=== PATIENT | female | born 1945 | race Caucasian/White ===

== ENCOUNTER → 2019-09-28 09:06 | Day surgery (SDC) | payer MEDICARE, OTHER, SELFPAY ==
[2019-09-28] VITALS (15 sets, daily range): BP systolic 150–176; BP diastolic 60–99; PULSE 57–95; RESP 13–65; TEMP 37.1; O2SAT 94–98; BMI 29.0
--- NOTE | 2019-09-28 08:30 | XACV_ITS ---
Ht: 160 cm Wt: 74 kg BSA: 1.84 m2 Gender: Female : 1945 Any Known Allergies: Other Exam Priority: Routine Procedure(s): Procedure Description: Diagnostic procedure Diagnostic Findings No significant disease noted in the Left Main, LAD, Circumflex, or RCA coronary arteries. Coronary angiography shows right dominance. Conclusions No significant disease noted in the Left Main, LAD, Circumflex, or RCA coronary arteries. Hyperdynamic left ventricular systolic function. Ejection fraction of 75%. Indication for left heart catheterization: Unexplained shortness of breath chest pain despite of maximal medical management, elevated TID on stress test. Recommendations Continue current medical management and risk factor modification. Diagnostic RX Recommendation: medical therapy and/or counseling LV EDP: 12 mmHg Ventriculography Ejection Fraction: 75.0 % Left Ventriculography Findings: Hyperkinetic left ventricular systolic function. Clinical Evaluation EBL: 5mL-10mL Procedural Details Procedure Consent Obtained. Pre-Procedure Time Out. Identified patient by full name and date of as verbalized by the patient/guarantor. Does the consent match the physician's order: Yes. Accurate & Complete Informed Consent: Yes. Inpatient/Outpatient History & Physical on Chart: Yes. If H&P is completed, is and addenduem needed: N/A; If yes, is the addendum complete: N/A. Visualize and Verify Site with Patient/Guarantor: N/A. Relevant Radiology Images available: Yes. Pre-op teaching completed and patient verbalized understanding. The risks, benefits, and alternatives of sedation and/or procedure were discussed by physician. The patient agrees to continue. Procedure started. Correct patient, site and procedure confirmed by cath team. PERRLA. Strong, equal hand farm demonstrator bilaterally. Lungs clear x 5 lobes. IV Site on Arrival: 20 gauge in the left anticubital. IV Fluids: 0.9% NaCl at KVO. 0 mL infused prior to packing house laborer. Pre Procedural Pulses: bilateral dorsalis pedis was 3+. Pre Procedural Pulses: bilateral posterior tibial was 3+. Pre Procedural Pulses: bilateral radial was 3+. Oxygen started at 2liters/min via nasal canula. right groin was prepped with chloroprep then draped in the usual sterile fashion. right radial was prepped with chloroprep then draped in the usual sterile fashion. Physician notified. Baseline sample Acquired. HR: 0 BPM. Equipment: 6F - Radial. Cardiac Cath Pack. ACIST Manifold Kit Model BT 2000. Heparinized Saline (2 units/mL), 1000 mL bag. Physician arrived. Physician scrubbed in. Immediate Pre-Procedure Time Out. Correct Patient: Yes; Correct Procedure: Yes; Correct Site: Yes; Correct Patient Position: Yes; Correct Supplies: Yes; Dried Flammable Prep: Yes; Blood Products Available: No;. Lidocaine 1% infiltrated to the right radial. Arterial access obtained. A 5 saudi [place]abian TIG catheter in over wire. Side port of sheath attached to Normal Saline flush at KVO to maintain patency. I.V. not flushing. A 20 gauge IV was started in the left forearm using aseptic technique. Baseline sample Acquired. HR: 75 BPM. Baseline sample Acquired. HR: 73 BPM. AO pressure: 192/80. Multiple views taken of left coronary artery. Catheter redirected to the RCA. Catheter removed over the exchange wire. A 5 sa[place] arabian JR4 catheter in over wire. Multiple views taken of right coronary artery. A 5 [place]abian Angled Pig catheter in over wire. EDP Sample taken: LV 8; HR: 89 BPM; SpO2: 96%. EDP Sample taken: LV 12; HR: 89 BPM; SpO2: 96%. LV gram performed in VIDES @ 10 mL/second for a total of 30 mL. EDP Sample taken: LV Off; HR: 0 BPM; SpO2: 95%. Pullback taken: LV Off; AO Off; Mean: , Peak to Peak: , SEP: ; HR: 0 BPM; SpO2: 95%. LV EDP: 12. TR band placed. Hemostasis obtained. Post Procedure: Pulses reassessed and unchanged. PERRLA. Strong, equal hand farm demonstrator bilaterally. No VTE prophylaxis required. Medication's Wasted: Lidocaine 1% = 18 mL. Medication's Wasted: Heparin = 10 mg. Medication's Wasted: Nitro = 49.8 mg. Medication's Wasted: Hydralazine = 10 mg. Medication's Wasted: Fentanyl = 50 mcg. Total IV fluids: 50 mL. A TR Band was successful obtaining hemostatsis at the Right Radial artery insertion site. Contrast type used: Visipaque 320 mgI/mL, 500 mL bottle. Post-op diagnosis: Chest Pain. Complications: N/A. Estimated blood loss: 5mL-10mL. Procedure completed. Patient transferred by wheelchair to CPRU. [facility] Clinical Fraility Score: 3: Managing Well. Service Line Layer Indications: New Onset Angina. Chest Pain Symptom Assessment: Atypical Angina. Cardiovascular Instability: No. Site: Right Radial artery Sheath Size: 6 Fr Hemostasis Method: TR Band Hemostasis Success: Successful Procedure Medications Start: 12:19 PM Stop: 12:19 PM Medication: Versed Amount: 1 mg Route: I.V. Start: 12:25 PM Stop: 12:25 PM Medication: Versed Amount: 1 mg Route: I.V. Start: 12:25 PM Stop: 12:25 PM Medication: Fentanyl Amount: 50 mcg Route: I.V. Start: 12:28 PM Stop: 12:28 PM Medication: Fentanyl Amount: 50 mcg Route: I.V. Start: 12:38 PM Stop: 12:38 PM Medication: Heparin Amount: 5000 units Route: I.V. Start: 12:38 PM Stop: 12:38 PM Medication: Versed Amount: 1 mg Route: I.V. Start: 12:38 PM Stop: 12:38 PM Medication: Fentanyl Amount: 50 mcg Route: I.V. Start: 12:40 PM Stop: 12:40 PM Medication: Hydralazine Amount: 10 mg Route: I.V. Start: 12:40 PM Stop: 12:40 PM Medication: Versed Amount: 1 mg Route: I.V. I, the attending physician, have reviewed and verified all procedure medications. Yes, all medications given per verbal order History/Risk Factors Hypertension: Yes Dyslipidemia: Yes Peripheral Arterial Disease (PAD): No Myocardial Infarction (IN): No Obesity: Yes Renal Disease: No Tobacco Use: Never Prior Interventions PCI: No CABG: No Valve Surgery: No Report Signatures Finalized by:Erick Fierro MD on 10/02/2019 8:48:29 PM
[2019-09-28] MEDS: diphenhydrAMINE 50 mg Capsule PO (09:29)
[2019-09-28 09:59] LABS: Basophils % 0.3 %; Eosinophils # 0.2 10^3/uL (0.0-0.8); Eosinophils % 2.5 %; Hematocrit 38.8 % (37.0-47.0); Lymphocytes # 2.3 10^3/uL (0.8-4.8); Lymphocytes % 34.2 %; Mean Corpuscular HGB Conc 33.5 g/dL (30.0-36.0); Mean Corpuscular Hemoglobin 33.8 pg (28.0-34.0); Mean Corpuscular Volume 100.8 fL (81-99); Mean Platelet Volume 11.4 fL (7.4-10.4); Monocytes # 0.5 10^3/uL (0.2-0.9); Monocytes % 7.7 %; Neutrophils # 3.7 10^3/uL (1.8-7.7); Neutrophils % 54.7 %; Nucleated Red Blood Cells % 0 %; Platelet Count 157 10^3/cmm (130-400); Red Blood Count 3.85 10^6/uL (4.1-5.3); Red Cell Distribution Width 13.2 % (12.1-15.1); White Blood Count 6.8 10^3/uL (4.0-10.0)
[2019-09-28 10:17] LABS: Anion Gap 16.7 (5-19); Blood Urea Nitrogen 9 mg/dL (8-23); Calcium 9.9 mg/dL (8.5-10.5); Carbon Dioxide 24 mmol/L (22-29); Chloride 105 mmol/L (98-107); Glucose 104 mg/dL (65-115); Osmolality Calculated 290 mOsm/kg (285-295); Potassium 3.7 mmol/L (3.5-5.1); Sodium 142 mmol/L (136-145)
--- NOTE | 2019-09-28 13:00 | SUR.PHASEII ---
RECEIVED THE PATIENT BACK FROM THE CARPENTER HELPER VIA WHEELCHAIR WITH CLAUDY BAUGH RN, [facility] AND GASTON PRETTY RN S/P [facility]. PATIENT AMBULATED TO THE BED WITH MINIMAL ASSISTANCE. PATIENT DROWSY BUT A & O X 3. MULE PACKER PLACED AND VITAL SIGNS OBTAINED. TR BAND INTACT TO THE RIGHT WRIST WITH NO BLEEDING OR HEMATOMA NOTED. PALPABLE RADIAL PULSE. NO OTHER ASSESSMENT CHANGES NOTED. POST RADIAL CARE EXPLAINED TO THE PATIENT AND HER SPOUSE AND DAUGHTER. THEY ALL VERBALIZED THEIR UNDERSTANDING. WILL CONTINUE TO MONITOR.
--- NOTE | 2019-09-28 13:00 | PC.NURSE ---
THE CURRENT IV WAS NOT WORKING AND A NEW 20 G WAS STARTED X 1 ATTEMPT IN THE LEFT FOREARM PER GASTON PRETTY RN.
--- NOTE | 2019-09-28 14:00 | SUR.PHASEII ---
LETTING THE AIR OUT OF THE TR BAND PER PROTOCOL. NO OTHER ASSESSMENT CHANGES NOTED. FAMILY REMAINS AT BEDSIDE.
--- NOTE | 2019-09-28 14:35 | SUR.PHASEII ---
PATIENT WITH COMPLAINTS OF N/V. DR ANGULO NOTIFIED AND ORDERS RECEIVED FOR ZOFRAN. SEE ORDERS.
[2019-09-28] MEDS: ondansetron 2 mg/ML SDV 2 mL 4 MG IVP ×2 (14:40→15:28)
--- NOTE | 2019-09-28 14:55 | SUR.PHASEII ---
PATIENT STATES THAT THE ZOFRAN WORKED WELL AND SHE WAS READY FOR LUNCH. PATIENT THEN REPOSITIONED IN BED AND SAT UP TO EAT.
--- NOTE | 2019-09-28 15:22 | SUR.PHASEII ---
PATIENT VOMITTED UP HER LUNCH AND IS NOW DRY HEAVING. DR ANGULO NOTIFIED AND NEW ORDERS RECEIVED FOR ANIA. SEE MAR.
--- NOTE | 2019-09-28 16:10 | SUR.PHASEII ---
THE PATIENT CONTINUES TO HAVE N/V. DR ANGULO NOTIFIED AND ORDERS RECEIVED FOR PROTONIX 40 MG PO NOW AND THEN 40MG PO DAILY X FIVE DAYS.
[2019-09-28] MEDS: pantoprazole DR 40 mg Tablet PO (16:38)
== END | disposition home or self-care (01) ==
PROVIDERS: Family Provider Nurse Practitioner Family; PCP Nurse Practitioner Family; Visit Provider Internal Medicine Cardiovascular Disease
DX: R07.9 Chest pain, unspecified (principal)
CPT/HCPCS: 80048; 85025; 93452; C1769; C1887; C1894; J0360; J1644; J2001; J2250; J2405; J3010; J3490; J7030; Q0163; Q9967

== ENCOUNTER → 2019-10-13 13:25 | Outpatient (BNVA) | payer MEDICARE, OTHER, SELFPAY | PROVIDERS: Family Provider Nurse Practitioner Family; PCP Nurse Practitioner Family; Visit Provider Nurse Practitioner Family | DX: R06.02 Shortness of breath (principal) | CPT/HCPCS: 80048 ==

== ENCOUNTER 2020-06-01 19:20 | Emergency (ER) | payer MEDICARE, OTHER, SELFPAY ==
[2020-06-01 19:43] VITALS: BP 168/68; PULSE 71; RESP 19; TEMP 36.8; O2SAT 94; BMI 26.5
--- NOTE | 2020-06-01 20:31 | XR_ITS ---
WS: [id number] GRICEL, 06/01/2020 Clinical Data: constipation Comparison: None. Findings: No abnormal intraabdominal masses or calcifications are seen. There is no dilatated small bowel or ev idence of obstruction. There is fecal material in the rectum. The proximal colon shows air with little fecal material. There is a dextroscoliosis. There are clips in the right upper quadrant from a cholecystectomy. XR/XR KUB [id number] Impression: Fecal material in the rectum.
--- NOTE | 2020-06-01 20:36 | ED_ITS ---
HPI - Abdominal Pain General: Chief Complaint: Abdominal Pain Stated Complaint: stomach pains Time Seen by Provider: 06/01/20 20:30 Source: patient Mode of arrival: ambulatory Limitations: no limitations History of Present Illness: HPI narrative: 74-year-old female who states she is recently diagnosed with pneumonia and has been taking pain meds to do that. She states she has had severe constipation has not had a bowel movement since taking the pain meds. She states she has been taking laxatives today having extreme pain. She states most the pain is a rectum and feels like she has a large bowel stuck that she is unable to pass. Denies any fever. Denies any vomiting. MD elicited complaint: abdominal pain Pertinent past history: constipation Associated Symptoms: Reports constipation; Denies chills, diarrhea, dysuria, fever(s), nausea and vomiting Review of Systems Const: Denies: fever(s), chills, body aches or change in appetite Eyes: Denies: blurry vision or eye discomfort ENMT: Denies: throat pain or dental pain Card: Denies: chest pain Resp: Denies: dyspnea GI: Reports: abdominal pain and constipation; Denies: nausea, vomiting or diarrhea : Denies: dysuria Musc: Denies: neck pain or back pain Skin/Breast: Denies: rash Neuro: Denies: headache(s) Psych: Denies: depression Albino/Lymph: Denies: easy bruising All/Imm: Denies: urticaria PFS ED PFSH: Medical History (Updated 06/01/20 @ 21:09 by Bird Valdez MD) Diverticulosis HTN (hypertension) Hyperlipidemia Surgical History S/P cholecystectomy S/P hysterectomy S/P knee surgery Family History Brother Heart disease Myocardial infarction X2 brothers Social History Smoking and tobacco status: never smoked History of recent travel: No Physical Exam Const: COMMON NORMALS: no acute distress, patient oriented x3 and healthy appearing HENMT: COMMON NORMALS: normocephalic and atraumatic HEAD & SCALP: normocephalic and atraumatic Eye: COMMON NORMALS: Equal, round and reactive pupils present and EOMs intact bilaterally PUPIL: Yes Equal, round and reactive pupils present Neck/C-Spine: COMMON NORMALS: full ROM and supple Chest: COMMONS NORMALS: normal inspection of the chest and normal palpation of entire chest wall Resp: COMMON NORMALS: normal respiratory effort, No retractions, No use of accessory muscles and clear to auscultation bilaterally AUSCULTATION: clear to auscultation bilaterally Cardio: COMMON NORMALS: regular rate, regular rhythm and No murmurs present (Cardio) RATE: regular rate RHYTHM: regular rhythm GI: COMMON NORMALS: Normal to inspection, nondistended, normoactive bowel sounds present, Soft to palpation, non-tender and no masses PALPATION: Yes Soft to palpation Extremity: COMMON NORMALS: normal to inspection and full ROM Neuro: COMMON NORMALS: patient oriented x3, moves all extremities and no focal motor deficits Psych: COMMON NORMALS: mental status grossly normal, Normal thought process present and cooperative THOUGHT PROCESS: Normal thought process present Skin: COMMON NORMALS: no rashes or lesions noted and no wounds GENERAL SKIN EXAM: no rashes or lesions noted Course Vital Signs: Vital signs: Vital Signs Temperature 98.3 F 06/01/20 19:43 Pulse Rate 71 06/01/20 19:43 Respiratory Rate 19 H 06/01/20 19:43 Blood Pressure 168/68 06/01/20 19:43 Pulse Oximetry 94 06/01/20 19:43 MDM - Abdominal Pain MDM Narrative: Medical decision making narrative: Patient presents here with constipation. She had a large bowel movement while here all her symptoms resolved. Did a repeat exam and she had no tenderness. Patient did not want any lab work and I feel that her symptoms were due to her constipation. She is stable for discharge and is to follow-up with PCP and return to ER if she has any pain. She understands and agrees to plan. Imaging Data ^: KUB: Attestation: I personally reviewed and interpreted this imaging study as follows: My impression: constipation Discharge Plan Discharge Patient Disposition: Home Clinical Impression: Constipation Qualifiers: Constipation type: unspecified constipation type Qualified Code(s): K59.00 - Constipation, unspecified Condition: Stable Prescriptions: No Action omega-3 fatty acids [Fish Oil Concentrate] 1,000 mg capsule 1,000 mg PO DAILY RF: 0 isosorbide mononitrate 30 mg tablet extended release 24 hr 15 mg PO BID RF: 0 aspirin [Adult Low Dose Aspirin] 81 mg tablet,delayed release (DR/EC) 81 mg PO DAILY RF: 0 multivitamin Tablet 1 tab PO DAILY RF: 0 lisinopril 20 mg tablet 20 mg PO DAILY RF: 0 albuterol sulfate 90 mcg/actuation HFA aerosol inhaler 2 puff INHALATION Q6H PRN (Reason: Shortness Of Breath) RF: 0 potassium gluconate 600 mg (99 mg) tablet 600 mg PO DAILY RF: 0 triamterene-hydrochlorothiazid 37.5-25 mg capsule 1 cap PO DAILY RF: 0 carvedilol 3.125 mg tablet 3.125 mg PO BID Qty: 60 RF: 3 mirtazapine 15 mg Tablet 15 mg PO DAILY RF: 0 Discharge Orders: Discharge Order (Routine); Ordered 06/01/20 Ordered By: Bird Valdez Referrals: Tamiko Rodriguez, [facility] [Primary Care Provider] - 1-3 days Discharge Diet: Advance as tolerated Discharge Activity: Resume usual activity Patient Instructions: Chest Pain (ED) Coding Level of Care Code ED Director Emergency Services for Chg Fwd Exam Comprehensive
[2020-06-01 21:20] VITALS: BP 134/87; PULSE 78; RESP 18; O2SAT 98
== END 2020-06-01 21:23 | disposition home or self-care (01) ==
PROVIDERS: Emergency Provider Emergency Medicine; PCP Nurse Practitioner Family
DX: K59.00 Constipation, unspecified (principal); Z79.82 Long term (current) use of aspirin; I10 Essential (primary) hypertension; E78.5 Hyperlipidemia, unspecified
CPT/HCPCS: 12345; 74018; 99281; 99282

== ENCOUNTER 2020-07-05 08:07 | Outpatient (CLI) | payer MEDICARE, OTHER, SELFPAY ==
--- NOTE | 2020-07-05 08:14 | MM_ITS ---
WS: [id number] Bilateral screening digital mammogram, 07/05/2020 Clinical Data: SCREENING Comparison: 06/08/2019, 05/05/2018, 05/03/2017, 02/03/2016, 12/31/2014, 11/27/2013. Findings: The breast parenchymal pattern shows fibroglandular tissue No spiculated masses or clustered calcific ations are seen. There are no secondary signs of carcinoma. MM/[id number] Impression: 1. Negative bilateral mammogram unchanged. 2. Recommend annual screening mammograms. BIRADS: 1-Negative FOLLOW UP: 1 Year Follow-up The CAD cloth checker was used.
== END 2020-07-05 08:08 | disposition home or self-care (01) ==
LOC: RADSHAW 08:11
PROVIDERS: PCP Nurse Practitioner Family; Visit Provider Nurse Practitioner Family
DX: Z12.31 Encounter for screening mammogram for malignant neoplasm of breast (principal)
CPT/HCPCS: 77067

== ENCOUNTER → 2020-11-08 09:00 | Outpatient (BNVA) | payer MEDICARE, OTHER, SELFPAY | PROVIDERS: PCP Nurse Practitioner Family; Referring Provider Nurse Practitioner Family; Visit Provider Orthopaedic Surgery | DX: M48.061 Spinal stenosis, lumbar region without neurogenic claudication (principal); M54.16 Radiculopathy, lumbar region; M48.062 Spinal stenosis, lumbar region with neurogenic claudication | CPT/HCPCS: 72120 ==

== ENCOUNTER 2021-12-27 10:37 | Outpatient (CLI) | payer MEDICARE, SELFPAY ==
--- NOTE | 2021-12-27 10:54 | MM_ITS ---
WS: [id number] VIEWS: MLO and CC views both breasts. 3D digital tomosynthesis is also included in this exam. Comparison made with prior exam of 05/03/2017, 05/05/2018, 06/08/2019, 07/05/2020,. Findings: There was no sign of mass, architectural distortion or suspicious calcification in either breast. Sc attered fibroglandular densities MM/[id number] Impression: BI-RADS: 2-Benign FOLLOW-UP: 1 Year Follow-up This mammogram was also analyzed by the Computer Aided Detection System R2 Imag e Raise Driller.
== END 2021-12-27 10:38 | disposition home or self-care (01) ==
LOC: RAD 10:42
PROVIDERS: PCP Nurse Practitioner Family; Visit Provider Nurse Practitioner Family
DX: Z12.31 Encounter for screening mammogram for malignant neoplasm of breast (principal)
CPT/HCPCS: 77063; 77067

== ENCOUNTER → 2022-05-21 10:50 | Outpatient (BNVA) | payer MEDICARE, SELFPAY | PROVIDERS: PCP Nurse Practitioner Family; Visit Provider Otolaryngology | DX: R22.1 Localized swelling, mass and lump, neck (principal); K11.1 Hypertrophy of salivary gland; M27.0 Developmental disorders of jaws | CPT/HCPCS: 99202; 99203 ==

== ENCOUNTER → 2022-07-10 12:56 | Outpatient (BNVA) | payer MEDICARE, SELFPAY | PROVIDERS: PCP Nurse Practitioner Family; Visit Provider Otolaryngology | DX: K11.1 Hypertrophy of salivary gland (principal); M27.0 Developmental disorders of jaws | CPT/HCPCS: 99213 ==

== ENCOUNTER 2022-09-10 11:21 | Outpatient (CLI) | payer MEDICARE, SELFPAY ==
--- NOTE | 2022-09-10 | CT_ITS ---
WS: [id number] CT SINUSES TECHNIQUE: Noncontrast CT of the paranasal sinuses with coronal and sagittal reformatted images. CLINICAL INFORMATION: SINUSITIS COMPARISON: None. DLP: 412.[address] scans at [facility] use at least one of these dose optimization techniques: automated e xposure control; mA and/or kV adjustment per patient size (includes targeted exams where dose is matc hed to clinical indication); or iterative reconstruction. FINDINGS: Mild nasal septal deviation. Paranasal sinuses are well aerated. Mild mucosal thickening in the ethmo id air cells. Maxillary sinuses and frontal sinuses are well aerated. Sphenoid sinuses are well aerat ed. Sphenoid sinus ostia appear patent. Mastoid air cells are well aerated. Normal parapharyngeal fat. Chronic lacunar infarct RIGHT cerebell um. Normal posterior nasopharynx. Normal parapharyngeal fat. Postoperative changes involving the gayle ible with beam hardening artifact degrades images. Vascular calcification. Small nodule RIGHT inferio r eyelid likely corresponds to recent area of surgery. 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 CT/CT sinus wo con* [id number] IMPRESSION: 1. Paranasal sinuses are well aerated. Mild mucosal thickening in the ethmoid air cells. 2. Mastoid air cells are well aerated. Normal posterior nasopharynx. 3. Small chronic lacunar infarct RIGHT cerebellum. 4. Small nodule RIGHT inferior eyelid measuring 7 mm likely corresponds to are a of recent surgery.
== END 2022-09-10 11:22 | disposition home or self-care (01) ==
PROVIDERS: PCP Nurse Practitioner Family; Visit Provider Student in an Organized Health Care Education/Training Program
DX: J32.9 Chronic sinusitis, unspecified (principal); I63.81 Other cerebral infarction due to occlusion or stenosis of small artery; H02.89 Other specified disorders of eyelid
CPT/HCPCS: 70486

== ENCOUNTER 2022-10-26 10:29 | Day surgery (SDC) | payer MEDICARE, SELFPAY ==
[2022-10-25 13:10] VITALS: BMI 23.9
[2022-10-26] VITALS (7 sets, daily range): BP systolic 127–169; BP diastolic 59–81; PULSE 65–81; RESP 15–20; TEMP 36.1–36.8; O2SAT 95–98
[2022-10-26] MEDS: scopolamine 1.5 Patch 1 PATCH TRANSDERMA (11:53)
[2022-10-26] MEDS: sodium chloride 0.9% 1,000 ML 30 ML IV (12:19)
--- NOTE | 2022-10-26 12:54 | ANES.PREANE2 ---
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 Operation Date: 10/26/22 13:00 Proposed Procedures p [id number]- excision of left shoulder mass, excision of left denominational mass R59.0(Left) - Samir Gibson MD s Excision Facial Mass/Lesion(Left) - Samir Gibson MD Last intake: Intake Last Liquid Date 10/25/22 Last Liquid Time 19:30 Last Solid Date 10/25/22 Last Solid Time 16:30 Social No alcohol and No tobacco Exam alert, oriented x 3, clear to auscultation bilaterally and regular rate & rhythm Airway Submandibular: Other (pronounced submandibular and cervical swelling) Cervical ROM: Other (very limited) Mallampati: Class IV Pulmonary None reported CV/HEM Coronary Artery Disease and Hypertension None reported Hepatic None reported GI None reported Metabolic Hyperlipidemia Anesthetic Plan ASA status: 4 Anesthesia: General (Glidesope) Medications/Allergies Home Medications Medication Instructions Recorded Confirmed Last Taken Type aspirin 81 mg tablet,delayed 81 mg PO DAILY 09/03/19 10/25/22 10/21/22 History release (Adult Low Dose Aspirin) isosorbide mononitrate 30 mg 15 mg PO BID 09/03/19 10/26/22 10/26/22 History tablet,extended release 24 hr lisinopril 20 mg tablet 20 mg PO DAILY 09/03/19 10/26/22 10/25/22 History multivitamin 1 tab PO DAILY 09/03/19 10/26/22 10/25/22 History triamterene 37.5 1 cap PO DAILY 10/13/19 10/26/22 10/25/22 History mg-hydrochlorothiazide 25 mg capsule carvedilol 3.125 mg tablet 3.125 mg PO BID #60 tabs 01/18/20 10/25/22 05/31/20 Rx simvastatin 40 mg tablet 40 mg PO DAILY 06/01/20 10/26/22 10/25/22 History metoprolol tartrate 25 mg tablet 25 mg PO DAILY 11/08/20 10/26/22 10/26/22 06:30 History mirtazapine 15 mg tablet 30 mg PO DAILY 11/08/20 10/26/22 10/25/22 History amitriptyline 50 mg tablet 50 mg PO DAILY 05/21/22 10/26/22 10/25/22 History amlodipine 10 mg tablet 10 mg PO DAILY 05/21/22 10/26/22 10/26/22 06:30 History meclizine 25 mg tablet 25 mg PO TID 05/21/22 10/26/22 10/25/22 History Allergies Allergy/AdvReac Type Severity Reaction Status Date / Time atorvastatin [From Lipitor] Allergy Unknown Unknown Verified 10/22/22 14:46 indomethacin [From Indocin] Allergy Unknown Unknown Verified 10/22/22 14:46 Current Medications Generic Name Dose Route Start Last Admin Trade Name Freq PRN Reason Stop Dose Admin Sodium Chloride 1,000 mls @ 30 mls/hr 10/26/22 11:15 10/26/22 12:19 Sodium Chloride 0.9% IV 10/27/22 11:14 30 mls/hr .Q24H JOLLY Administration PFSH Anesthesia Medical History Diverticulosis HTN (hypertension) Hyperlipidemia Neuropathy Surgical History S/P cholecystectomy S/P hysterectomy S/P knee surgery Family History Brother Heart disease Myocardial infarction X2 brothers Social History Smoking and tobacco status: never smoked Data Anesthesia Cardiac Studies: No Data to Display
--- NOTE | 2022-10-26 13:19 | P.HPUD_ITS ---
Surgery/Procedure H&P Update DATE OF PROCEDURE: October 26, 2022 DATE H&P PERFORMED: 10/22/22 H&P UPDATE INFORMATION: I have reviewed H&P completed within last 30 days, I have examined patient prior to procedure and Changes to prior documentation as noted here CHANGES TO PREVIOUS DOCUMENTATION: Patient's submandibular and submental areas show significant increase in mass affect. Tender to touch. Masses in right posterior neck also enlarged. PREOP DIAGNOSIS: Left shoulder and left confucianist masses PRIMARY INDICATION FOR PROCEDURE: Left shoulder and bilateral confucianist masses and neck masses anterior bilateral and submental and right posterior triangle. Due to the confucianist mass size difference the right side seems to be more amenable to excision for biopsy and that will be done instead of the left side. Left shoulder mass will be excised first. Others will be dependent upon frozen section. PLANNED PROCEDURE: Operation Date: 10/26/22 13:00 Proposed Procedures p [id number]- excision of left shoulder mass, excision of left confucianist mass R59.0(Left) - Samir Gibson MD s Excision Facial Mass/Lesion(Left) - Samir Gibson MD
[2022-10-26] MEDS: ceFAZolin 2,000 MG in sodium chloride 0.9% (plus) 50 ML 100 MG IV (13:26)
[2022-10-26] MEDS: lidocaine-epi 2% 1.7mL Cartridge (OR Only) 5.1 ML XX (14:12)
--- NOTE | 2022-10-26 14:30 | PM.OP ---
Operative Report Date of procedure: October 26, 2022 Pre-op diagnosis: Preop Diagnosis Left shoulder and left scientology masses Post-op diagnosis: Left shoulder mass. 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 There was no capsule identifiable. Procedure done: Excision of left anterior shoulder subcutaneous mass Implants: No implants Specimens removed/disposition: Left anterior shoulder subcutaneous mass Pathology: Same and frozen section is malignant lymphoproliferative process. Surgeon: Samir Gibson MD Anesthesia: General and Local Estimated blood loss: 15 mL Complications: No complications encountered Findings: 77-year-old female patient who over the last month plus has developed rather rapid growing lesions with the most obvious on the left anterior shoulder. It has caused discoloration of the skin with ecchymosis. It measures approximately 4 x 2-1/2 x 2 cm. Patient also has additional masses that have grown in the last 2 weeks that have involved both scientology areas posterior triangle of the right side of the neck and over the last few days a massive rapid swelling of the submandibular and submental neck areas. Brief History: 77-year-old female patient with rapidly enlarging likely lymphomatous process involving multiple areas. The first of the masses to be identified was on the left anterior shoulder and others showed up in the right posterior neck right neck groin area and also most recently rapidly enlarging firm masses involving the right submandibular and submental areas. Patient being brought to the operating room at this time to undergo excision of the left anterior shoulder lesion as this is the one that is most accessible and with the least risk to underlying nerves and being the longest duration of mass will probably show us the best pathology. The planned excision is to do the left anterior shoulder lesion and if necessary possibly one of the scientology lesions. The procedure its risks and complications were explained in detail. Informed consent was granted and witnessed. Risks included bleeding infection numbness scarring swelling bruising recurrence need for additional treatment and more serious risks associated with anesthesia. With these things understood informed consent was granted and witnessed. Procedure: Description of procedure: The patient was placed on the operating table in the supine position. Adequate general endotracheal tube anesthesia was obtained. She was repositioned into a semirecumbent position. A timeout was accomplished identifying the patient date of plan procedure allergies fire risk and medications given. With all in agreement the procedure continued. The patient was prepped and draped in usual fashion. Orestes the site was noted. Local was injected in a field block around the anterior shoulder lesion using a total of 5.1 mL of 2% Xylocaine with 1-100,000 epinephrine. Then a 15 blade was used to incise over the mass and attempt to find a capsule or separation from the undersurface of the skin layer was impossible. It was found that what appeared to be lymphomatous process was invading into the undersurface of the skin. There was no fat plane. There was no identifiable capsule. Dissection was carried around this mass to the deep subcutaneous fat and in that plane the lesion was excised. It was sent to pathology fresh and for lymphomatous processing as well as frozen section. The frozen section did return as malignant lymphoproliferative disorder. The defect was irrigated with sterile water and then hemostasis was obtained with bipolar cautery. There was still a little bit of ooze because of the nature of the invasion in the skin and therefore this was treated with powdered coagulant. Then pressure was applied. Subcutaneous layer was closed with interrupted 4-0 chromic suture. Pressure was then applied for about 5 minutes. Then skin richard were applied. Pressure was then again applied for 5 minutes. Neosporin ointment was applied over the incision and fluffs were placed and micropore adhesive dressing placed with pressure over the excision site. Patient tolerated the procedure well with the drapes removed and returned to anesthesia for wake-up and extubation. She had an estimated blood loss of 15 mL and was taken to recovery room in stable condition.
[2022-10-26] MEDS: ondansetron 2 mg/ML SDV 2 mL 4 MG IVP (15:19)
--- NOTE | 2022-10-26 15:23 | ANE.PACU2 ---
Inpatient post-anesthesia follow up: Vital signs: Temperature 97.0 F Pulse Rate 76 Respiratory Rate 16 Blood Pressure 141/63 Pulse Oximetry 96 Oxygen Delivery Me thod Room Air Oxygen Flow Rate Fraction of Inspir ed Oxygen Hydration adequate: Yes Nausea and vomiting: No Pain level: 3 Mental status: Baseline
--- NOTE | 2022-10-26 16:53 | SUR.PHASEII ---
1540 Nausea resolved and pt eating crackers and drinking sprite
--- NOTE | 2022-10-26 16:54 | SUR.PHASEII ---
[id number] Spoke with friend Dewey and stated that Dr. Gibson said to call office Saturday for further instructions about surgical dressing
[2022-10-30 07:51] LABS: Lymphoma Profile (BBPL) See Report
[2022-11-27 11:16] LABS: High Grade Lymphoma (FISH)BBPL See Report
== END 2022-10-26 16:45 | disposition home or self-care (01) ==
PROVIDERS: PCP Nurse Practitioner Family; Visit Provider Otolaryngology
PROC: (CPT 11604; principal; 2022-10-26 13:00)
DX: C83.34 Diffuse large B-cell lymphoma, lymph nodes of axilla and upper limb (principal); I25.10 Atherosclerotic heart disease of native coronary artery without angina pectoris; I10 Essential (primary) hypertension; E78.5 Hyperlipidemia, unspecified; Z79.82 Long term (current) use of aspirin
CPT/HCPCS: 11604; 88184; 88185; 88307; 88331; 88342; 88374; J0330; J0690; J1100; J2405; J2704; J3010; J3490; J7030

== ENCOUNTER → 2022-10-30 11:01 | Outpatient (BNVA) | payer MEDICARE, SELFPAY | PROVIDERS: PCP Nurse Practitioner Family; Visit Provider Otolaryngology | DX: C83.34 Diffuse large B-cell lymphoma, lymph nodes of axilla and upper limb (principal) | CPT/HCPCS: 99024 ==

== ENCOUNTER → 2022-11-02 10:21 | Outpatient (BNVA) | payer MEDICARE, SELFPAY | PROVIDERS: PCP Nurse Practitioner Family; Visit Provider Otolaryngology | DX: C83.34 Diffuse large B-cell lymphoma, lymph nodes of axilla and upper limb (principal) | CPT/HCPCS: 99024 ==

== ENCOUNTER 2022-11-03 05:49 | Outpatient (CLI) | payer MEDICARE, SELFPAY ==
--- NOTE | 2022-11-03 | PETR_ITS ---
PROCEDURE INFORMATION: Exam: PET/CT Skull Base to Mid-thigh Exam date and time: 11/03/2022 8:48 AM Age: 77 years old Clinical indication: Cervical lymphadenopathy LABS AND CLINICAL REPORTS: Glucose: 128 mg/dl Treatment strategy for malignancy (PET staging): Initial Staging (PI) TECHNIQUE: Imaging protocol: Following at least four-hour fasting and following the injection of radiopharmaceutical, low dose CT images were obtained. Then, PET images were obtained. Attenuation corrected images were constructed using the CT scan. Fused images of PET and CT were reviewed. The standardized uptake values (SUV) reported below are maximum values within a region of interest, expressed in gm/ml. Exam includes orbital meatal line to mid-thigh. Radiopharmaceutical: 13.14 mCi F-18 FDG (Fluorodeoxyglucose), IV. Time of imaging post radiopharmaceutical administration: 1 hour Injection site: Left antecubital vein COMPARISON: CR XR KUB [id number] 06/01/2020 8:38 PM FINDINGS: Brain: Visualized brain has normal physiologic uptake. Nasal cavity: Small nodule in the left inferior turbinate measures 7.7 SUV. Pharynx: No abnormal uptake. Larynx: No abnormal uptake. Lungs, pleura and trachea: No abnormal uptake. 3 mm calcified granuloma noted medially in the left upper lobe (image 56). Small subsegmental atelectasis medially in the right upper lobe and in the left lower lobe. No pleural effusion. Heart: Normal physiologic uptake. There is no cardiomegaly. Mild coronary artery calcification is present. There is no pericardial effusion. Mediastinal space: No abnormal uptake. Liver: No abnormal uptake. Gallbladder and bile ducts: No abnormal uptake. Status post cholecystectomy. Pancreas: No abnormal uptake. Spleen: The spleen is mildly enlarged (13.7 cm) with slightly heterogenous diffusely increased uptake up to 8.6 SUV suggestive of diffuse lymphomatous involvement. Adrenal glands: No abnormal uptake. No nodules. Kidneys and ureters: Normal physiologic uptake. No hydronephrosis. Stomach and bowel: About 1.5 x 1 cm elongated focus in the midline within the mesentery adjacent to the loop of ileum on image 138 measures 8 SUV. It is unclear if it is within the bowel or in the adjacent mesentery. No abnormal dilatation of the bowel. Vasculature: No abnormal uptake. No aortic aneurysm. Lymph nodes: There is multicompartmental lymphadenopathy with the bulkiest disease in the right neck suggestive of malignancy. The conglomerate of right jugular lymph nodes measures 36 SUV with a short axis of about 2.5 cm. The conglomerate of right submandibular lymph nodes with a short axis of about 3 cm measures 34.9 SUV. The conglomerate of right supraclavicular lymph nodes with the largest short axis of 2 cm measure 34.3 SUV. There are small fDG avid lymph nodes in the left neck including jugular lymph nodes with the largest short axis of 1.2 cm and uptake of 18.7 SUV, and subcentimeter supraclavicular lymph nodes with uptake of 10.6 SUV. Borderline in size left axillary lymph nodes with a short axis of 1 cm measures 13.9 SUV. Small right pelvic external iliac lymph nodes with a short axis of 0.8 cm measure 10.9 SUV. Borderline prominent bilateral superficial inguinal lymph nodes measure 1.3 cm in the short axis on the right side and less than 1 cm on the left side measure 15 SUV and 10.3 SUV respectively. Bones/joints: Mild degenerative changes in bilateral acromioclavicular joints. No suspicious malignant uptake in the bones. Soft tissues: There are multiple FDG avid soft tissue nodules compatible with malignancy scattered in the subcutaneous fat in bilateral temples, left cheek, left shoulder, back, anterior chest wall, bilateral arms, bilateral gluteal fat, right pubic area, left, proximal thighs. For example, 1.9 cm nodule medially in the left gluteal fat on image 169 measures 19.5 SUV. 1.4 cm nodule in the right upper anterior chest wall on image 65 measures 13.8 SUV. One of the largest soft tissue implants in the left back on image 56 measures 2 cm with uptake of 13.5 SUV. Small nodule in the left medial canthus in the area of the left nasolacrimal duct sac measures 8.9 SUV. Small elongated soft tissue nodular opacities in the temples measure up to 9.9 SUV on the right side. There is diffuse edema of the right submandibular and bilateral submental fat. PET/PET [facility] INITIAL [id number] IMPRESSION: Disseminated intensely FDG avid malignancy with the largest lymphadenopathy in the right neck with highest uptake of 36 SUV, small FDG avid lymph nodes in the left neck, left axilla, right pelvis and both groins, diffusely FDG avid splenomegaly, and multiple extranodal soft tissue implants in the superficial soft tissues in the head, neck, body and the extremities. Small foci of extranodal involvement in the central abdomen (questionably in the small bowel versus adjacent mesentery) and in the left nasal cavity on the left inferior turbinate.
== END 2022-11-03 05:50 | disposition home or self-care (01) ==
PROVIDERS: PCP Nurse Practitioner Family; Visit Provider Nurse Practitioner Family
DX: C96.9 Malignant neoplasm of lymphoid, hematopoietic and related tissue, unspecified (principal)
CPT/HCPCS: 36415; 78815; 85025; 86308; A9552

== ENCOUNTER 2022-11-05 12:37 | Oncology outpatient (recurring) (ONCR) | payer MEDICARE, SELFPAY ==
[2022-11-05 16:43] LABS: Basophils % 0.4 %; Eosinophils # 0.1 10^3/uL (0.0-0.8); Eosinophils % 1.6 %; Hematocrit 37.4 % (37.0-47.0); Hemoglobin 12.3 g/dL (11.5-15.3); Lymphocytes # 0.7 10^3/uL (0.8-4.8); Lymphocytes % 9.7 %; Mean Corpuscular HGB Conc 32.9 g/dL (30.0-36.0); Mean Corpuscular Hemoglobin 29.4 pg (28.0-34.0); Mean Corpuscular Volume 89.3 fl (81-99); Mean Platelet Volume 10.9 fL (7.4-10.4); Monocytes # 0.6 10^3/uL (0.2-0.9); Monocytes % 8.7 %; Neutrophils # 5.36 10^3/uL (1.8-7.7); Neutrophils % 78.9 %; Nucleated Red Blood Cells % 0 %; Platelet Count 131 10^3/cmm (130-400); Red Blood Count 4.19 10^6/uL (4.1-5.3); White Blood Count 6.8 10^3/uL (4.0-10.0)
[2022-11-05 16:57] LABS: Alanine Aminotransferase 8 U/L (0-33); Albumin Level 4.3 g/dL (3.5-5.2); Alkaline Phosphatase 143 U/L (35-105); Anion Gap 17.7 (5-19); Aspartate Amino Transferase 12 U/L (0-32); Blood Urea Nitrogen 10 mg/dL (8-23); Calcium 9.9 mg/dL (8.5-10.5); Carbon Dioxide 25 mmol/L (22-29); Chloride 98 mmol/L (98-107); Globulin 2.6 g/dL (1.3-4.6); Glucose 84 mg/dL (65-115); Lactate Dehydrogenase 463 U/L (135-214); Osmolality Calculated 282 mOsm/kg (285-295); Potassium 3.7 mmol/L (3.5-5.1); Sodium 137 mmol/L (136-145); Total Bilirubin 0.5 mg/dL (0.15-1.2); Total Protein 6.9 g/dL (6.6-8.7); Uric Acid 7.7 mg/dL (2.4-5.7)
[2022-11-05 17:19] LABS: Hepatitis A Antibody IgM Non-Reactive (Nonreactive); Hepatitis B Core AB, Total Non-Reactive (Nonreactive); Hepatitis B Surface AB 18.5 (11.5-1000); Hepatitis B Surface Antigen Non-Reactive (Nonreactive); Hepatitis C Virus Antibody Non-Reactive (Nonreactive)
== END 2022-11-18 23:59 | disposition home or self-care (01) ==
PROVIDERS: Internal Medicine Medical Oncology; PCP Nurse Practitioner Family; Visit Provider Radiology Radiation Oncology
DX: C83.38 Diffuse large B-cell lymphoma, lymph nodes of multiple sites (principal)
CPT/HCPCS: 36415; 80053; 82232; 83615; 84550; 85025; 86705; 86706; 86709; 86803; 87340; 99205

== ENCOUNTER 2022-11-06 10:09 | Outpatient (CLI) | payer MEDICARE, SELFPAY ==
--- NOTE | 2022-11-06 10:00 | USCV_ITS ---
Linda Thomson Age: 77 Gender: F : 1945 Exam Date: 11/06/2022 10:40 Ordering Phys: Steven Turner MD Technologist: Randall Keating [place] [facility] [place]: high risk medication BP: 265 / 74 HR: 68 Rhythm: Sinus Technical Quality: Adequate MEASUREMENTS (Male / Female) Normal Values 2D ECHO LV Diastolic Diameter PLAX 4.5 cm 4.2 - 5.9 / 3.9 - 5.3 cm LV Systolic Diameter PLAX 2.6 cm IVS Diastolic Thickness 0.9 cm 0.6 - 1.0 / 0.6 - 0.9 cm IVS Systolic Thickness 1.2 cm LVPW Diastolic Thickness 0.9 cm 0.6 - 1.0 / 0.6 - 0.9 cm LVPW Systolic Thickness 1.2 cm LVOT Diameter 1.9 cm LV Ejection Fraction 2D Teich 74.2 % LV Ejection Fraction MOD 2C 72.8 % LV Ejection Fraction 2C AL 73.5 % LA Diameter 3.4 cm LA Width 2.8 cm LA Height 3.8 cm RA Width 3.2 cm RA Height 2.9 cm Aorta at Sinotubular Diameter 2.1 cm IVC Diameter 1.9 cm M-MODE Aortic Annulus Diameter 2.8 cm LA Ao Ratio MM 1.2 MV E Point Septal Separation 0.3 cm DOPPLER Right Atrial Pressure 3.0 mmHg FINDINGS Left Ventricle Normal left ventricular size, systolic function and wall thickness, with no regional wall motion abnormalities. Left ventricular ejection fraction is estimated at 65 %. This is a limited study without M-mode or Doppler exam. Right Ventricle Normal right ventricular size and systolic function. Right Atrium The right atrium is normal in size. Left Atrium The left atrium is normal in size. Mitral Valve Structurally normal mitral valve. Aortic Valve Structurally normal trileaflet aortic valve. Tricuspid Valve Structurally normal tricuspid valve. Pulmonic Valve Pulmonic valve not well visualized. Pericardium Normal pericardium without effusion. Aorta Normal ascending aorta dimension. IVC Inferior vena cava not visualized. CONCLUSIONS Normal left ventricular size, systolic function and wall thickness, with no regional wall motion abnormalities. Left ventricular ejection fraction is estimated at 65 %. This is a limited study without M-mode or Doppler exam. There has been no change since the previous echo dated 12/10/2018. Dr. Yariel Pride MD (Electronically Signed) Final Date: 06 November 2022 16:04 S
== END 2022-11-06 10:10 | disposition home or self-care (01) ==
LOC: RAD 10:14
PROVIDERS: PCP Nurse Practitioner Family; Visit Provider Internal Medicine Medical Oncology
DX: C85.10 Unspecified B-cell lymphoma, unspecified site (principal)
CPT/HCPCS: 93308

== ENCOUNTER 2023-01-10 08:36 | Oncology outpatient (recurring) (ONCR) | payer MEDICARE, SELFPAY ==
--- NOTE | 2022-12-31 10:52 | PC.PHAR ---
Dr Turner informed be that he will be OOO when patient will need treatment. he requested that I draft her next cycle as cycle 4 plus dose reduce her cytoxan and shelli to 75%.
[2023-01-10 08:52] VITALS: BP 137/72; PULSE 99; RESP 18; TEMP 35.6; O2SAT 96
[2023-01-10 09:04] LABS: Basophils # 0.1 10^3/uL (0.0-0.1); Basophils % 0.9 %; Eosinophils % 0.4 %; Hematocrit 32.3 % (37.0-47.0); Hemoglobin 10.2 g/dL (11.5-15.3); Lymphocytes # 0.6 10^3/uL (0.8-4.8); Lymphocytes % 11.3 %; Mean Corpuscular HGB Conc 31.6 g/dL (30.0-36.0); Mean Corpuscular Hemoglobin 30.3 pg (28.0-34.0); Mean Corpuscular Volume 95.8 fl (81-99); Mean Platelet Volume 10.3 fL (7.4-10.4); Monocytes # 0.7 10^3/uL (0.2-0.9); Neutrophils # 3.89 10^3/uL (1.8-7.7); Neutrophils % 71.7 %; Nucleated Red Blood Cells % 0 %; Platelet Count 183 10^3/cmm (130-400); Red Blood Count 3.37 10^6/uL (4.1-5.3); White Blood Count 5.4 10^3/uL (4.0-10.0)
[2023-01-10 09:23] LABS: Alanine Aminotransferase 18 U/L (0-33); Albumin Level 4.4 g/dL (3.5-5.2); Alkaline Phosphatase 135 U/L (35-105); Aspartate Amino Transferase 20 U/L (0-32); Blood Urea Nitrogen 12 mg/dL (8-23); Calcium 9.7 mg/dL (8.5-10.5); Carbon Dioxide 22 mmol/L (22-29); Chloride 101 mmol/L (98-107); Globulin 2.3 g/dL (1.3-4.6); Glucose 143 mg/dL (65-115); Osmolality Calculated 290 mOsm/kg (285-295); Sodium 139 mmol/L (136-145); Total Bilirubin 0.4 mg/dL (0.15-1.2); Total Protein 6.7 g/dL (6.6-8.7)
[2023-01-10] MEDS: sodium chloride 0.9% 500 ML 75 ML IV (12:15)
[2023-01-10] MEDS: acetaminophen 325 mg Tablet 650 MG PO (12:16)
[2023-01-10] MEDS: OLANZapine 5 mg TABLET PO (12:17)
[2023-01-10] MEDS: diphenhydrAMINE 50 mg/mL SDV 1mL 25 MG IVP (12:18)
[2023-01-10] MEDS: palonosetron 0.25 mg/5 mL SDV IVP (12:20)
[2023-01-10] MEDS: famotidine 20 mg/2 mL INJ IVP (12:23)
[2023-01-10] MEDS: fosaprepitant 150 MG in sodium chloride 0.9% 150 ML 300 MG IV (12:43)
[2023-01-10 13:35] VITALS: BP 112/63; PULSE 82; RESP 18; TEMP 36.6; O2SAT 94
[2023-01-10 14:05] VITALS: BP 115/67; PULSE 78; RESP 16; TEMP 36.5
[2023-01-10 14:35] VITALS: BP 115/67; PULSE 85; RESP 16; TEMP 36.6
[2023-01-10 15:05] VITALS: BP 106/54; PULSE 80; RESP 16; TEMP 36.6
[2023-01-10] MEDS: DOXOrubicin 2 mg/ml MDV 60 MG IVP (15:53)
[2023-01-10 17:20] VITALS: BMI 22.3
[2023-01-10 18:19] VITALS: BP 105/59; PULSE 77; RESP 18; TEMP 35.7; O2SAT 93
== END 2023-01-18 23:59 | disposition home or self-care (01) ==
PROVIDERS: Internal Medicine Medical Oncology; PCP Nurse Practitioner Family; Visit Provider Radiology Radiation Oncology
DX: C83.38 Diffuse large B-cell lymphoma, lymph nodes of multiple sites (principal); Z51.12 Encounter for antineoplastic immunotherapy; Z51.11 Encounter for antineoplastic chemotherapy; R11.2 Nausea with vomiting, unspecified; D70.1 Agranulocytosis secondary to cancer chemotherapy; D64.81 Anemia due to antineoplastic chemotherapy; T45.1X5A Adverse effect of antineoplastic and immunosuppressive drugs, initial encounter; Z79.899 Other long term (current) drug therapy
CPT/HCPCS: 80053; 85025; 96361; 96367; 96375; 96411; 96413; 96415; 96417; 99215; J1100; J1200; J1453; J2469; J3490; J7040; J9000; J9070; J9370; Q5123

== ENCOUNTER → 2023-01-18 08:41 | Outpatient (BNVA) | payer MEDICARE, SELFPAY | PROVIDERS: PCP Nurse Practitioner Family; Visit Provider Otolaryngology | DX: R13.10 Dysphagia, unspecified (principal); C83.38 Diffuse large B-cell lymphoma, lymph nodes of multiple sites | CPT/HCPCS: 31575; 99213 ==

== ENCOUNTER 2023-02-14 09:15 | Oncology outpatient (recurring) (ONCR) | payer MEDICARE, SELFPAY ==
[2023-01-31 08:53] VITALS: BP 137/69; PULSE 93; RESP 18; TEMP 36.2; O2SAT 91
[2023-01-31 09:13] LABS: Basophils % 0.8 %; Eosinophils % 0.4 %; Hematocrit 30.5 % (37.0-47.0); Hemoglobin 9.9 g/dL (11.5-15.3); Lymphocytes # 0.5 10^3/uL (0.8-4.8); Lymphocytes % 8.9 %; Mean Corpuscular HGB Conc 32.5 g/dL (30.0-36.0); Mean Corpuscular Hemoglobin 31.3 pg (28.0-34.0); Mean Corpuscular Volume 96.5 fl (81-99); Mean Platelet Volume 9.8 fL (7.4-10.4); Monocytes # 0.7 10^3/uL (0.2-0.9); Monocytes % 13.1 %; Neutrophils # 3.78 10^3/uL (1.8-7.7); Nucleated Red Blood Cells % 0 %; Platelet Count 201 10^3/cmm (130-400); Red Blood Count 3.16 10^6/uL (4.1-5.3); Red Cell Distribution Width 17.9 % (12.1-15.1)
[2023-01-31 09:24] LABS: Alanine Aminotransferase 10 U/L (0-33); Albumin Level 4.2 g/dL (3.5-5.2); Alkaline Phosphatase 98 U/L (35-105); Anion Gap 14.4 (5-19); Aspartate Amino Transferase 14 U/L (0-32); Blood Urea Nitrogen 9 mg/dL (8-23); Calcium 9.4 mg/dL (8.5-10.5); Carbon Dioxide 25 mmol/L (22-29); Chloride 105 mmol/L (98-107); Glucose 123 mg/dL (65-115); Lactate Dehydrogenase 266 U/L (135-214); Osmolality Calculated 292 mOsm/kg (285-295); Potassium 3.4 mmol/L (3.5-5.1); Sodium 141 mmol/L (136-145); Total Bilirubin 0.5 mg/dL (0.15-1.2); Total Protein 6.2 g/dL (6.6-8.7)
[2023-01-31] MEDS: sodium chloride 0.9% 500 ML 100 ML IV (11:06)
[2023-01-31] MEDS: palonosetron 0.25 mg/5 mL SDV IVP (11:11)
[2023-01-31] MEDS: famotidine 20 mg/2 mL INJ IVP (11:13)
[2023-01-31] MEDS: OLANZapine 5 mg TABLET PO (11:14)
[2023-01-31] MEDS: diphenhydrAMINE 50 mg/mL SDV 1mL 25 MG IVP (11:15)
[2023-01-31] MEDS: fosaprepitant 150 MG in sodium chloride 0.9% 150 ML 300 MG IV (11:45)
[2023-01-31 12:17] VITALS: BP 149/68; PULSE 80; RESP 16; TEMP 36.5; O2SAT 97
[2023-01-31 12:50] VITALS: BP 130/63; PULSE 85; RESP 16; TEMP 35.8; O2SAT 93
[2023-01-31 13:25] VITALS: BP 144/65; PULSE 84; RESP 16; TEMP 36.3; O2SAT 90
[2023-01-31 14:00] VITALS: BP 146/67; PULSE 87; RESP 16; TEMP 36.2; O2SAT 90
[2023-01-31] MEDS: DOXOrubicin 2 mg/ml MDV 62 MG IVP (15:08)
[2023-01-31 16:31] VITALS: BP 148/71; PULSE 77; RESP 16; TEMP 35.8; O2SAT 90
[2023-02-07 13:54] VITALS: BMI 22.6
[2023-02-07 13:55] VITALS: BP 152/64; PULSE 77; RESP 18; TEMP 36.7; O2SAT 99
[2023-02-07 14:21] LABS: Hematocrit 28.3 % (37.0-47.0); Mean Corpuscular HGB Conc 31.8 g/dL (30.0-36.0); Mean Corpuscular Hemoglobin 30.5 pg (28.0-34.0); Mean Corpuscular Volume 95.9 fl (81-99); Mean Platelet Volume 10.2 fL (7.4-10.4); Platelet Count 177 10^3/cmm (130-400); Red Blood Count 2.95 10^6/uL (4.1-5.3); Red Cell Distribution Width 16.6 % (12.1-15.1); White Blood Count 1.7 10^3/uL (4.0-10.0)
[2023-02-07 14:22] LABS: Slide Review Slide Review Perform
[2023-02-07 14:35] LABS: Alanine Aminotransferase 35 U/L (0-33); Albumin Level 3.9 g/dL (3.5-5.2); Alkaline Phosphatase 76 U/L (35-105); Anion Gap 14.1 (5-19); Aspartate Amino Transferase 17 U/L (0-32); Blood Urea Nitrogen 12 mg/dL (8-23); Calcium 8.6 mg/dL (8.5-10.5); Carbon Dioxide 26 mmol/L (22-29); Chloride 102 mmol/L (98-107); Globulin 1.6 g/dL (1.3-4.6); Glucose 137 mg/dL (65-115); Lactate Dehydrogenase 168 U/L (135-214); Osmolality Calculated 290 mOsm/kg (285-295); Potassium 3.1 mmol/L (3.5-5.1); Sodium 139 mmol/L (136-145); Total Bilirubin 0.2 mg/dL (0.15-1.2); Total Protein 5.5 g/dL (6.6-8.7)
[2023-02-07 14:53] LABS: Absolute Neutrophil 1.5 10^3/cmm (1.4-6.5); Absolute Segmented Neutrophil 1.4 10/cmm (1.6-7.1); Band Neutrophils Absolute 0.1 10^3/cmm (0.0-1.2); Eosinophils 4 %; Lymphocytes 4 %; Lymphocytes Absolute 0.1 10^3/cmm (1.2-3.4); Platelet Estimate Normal (Normal); Polychromasia 1+; Segmented Neutrophils 84 %; Total Cells Counted 100 (0-100)
[2023-02-07 14:54] LABS: Hypersegmented Polys 1+
[2023-02-14 08:42] VITALS: BP 148/67; PULSE 99; RESP 18; TEMP 36.8; O2SAT 96
[2023-02-14 08:45] VITALS: BMI 22.3
[2023-02-14 09:14] LABS: Basophils % 2.1 %; Eosinophils # 0.1 10^3/uL (0.0-0.8); Eosinophils % 5.3 %; Hematocrit 29.9 % (37.0-47.0); Hemoglobin 9.9 g/dL (11.5-15.3); Lymphocytes # 0.2 10^3/uL (0.8-4.8); Lymphocytes % 25.3 %; Mean Corpuscular HGB Conc 33.1 g/dL (30.0-36.0); Mean Corpuscular Hemoglobin 31.1 pg (28.0-34.0); Mean Platelet Volume 10.2 fL (7.4-10.4); Monocytes # 0.4 10^3/uL (0.2-0.9); Monocytes % 37.9 %; Nucleated Red Blood Cells % 2.1 %; Platelet Count 131 10^3/cmm (130-400); Red Blood Count 3.18 10^6/uL (4.1-5.3); Red Cell Distribution Width 17.9 % (12.1-15.1)
[2023-02-14 09:21] LABS: Alanine Aminotransferase 15 U/L (0-33); Albumin Level 4.2 g/dL (3.5-5.2); Alkaline Phosphatase 92 U/L (35-105); Anion Gap 21.2 (5-19); Aspartate Amino Transferase 21 U/L (0-32); Blood Urea Nitrogen 7 mg/dL (8-23); Calcium 9.2 mg/dL (8.5-10.5); Carbon Dioxide 20 mmol/L (22-29); Chloride 102 mmol/L (98-107); Glucose 165 mg/dL (65-115); Osmolality Calculated 292 mOsm/kg (285-295); Potassium 3.2 mmol/L (3.5-5.1); Sodium 140 mmol/L (136-145); Total Bilirubin 0.5 mg/dL (0.15-1.2); Total Protein 6.2 g/dL (6.6-8.7)
[2023-02-14 09:52] LABS: Slide Review Slide Review Perform
== END 2023-02-18 23:59 | disposition home or self-care (01) ==
PROVIDERS: Internal Medicine Medical Oncology; Nurse Practitioner Family; PCP Nurse Practitioner Family; Visit Provider Specialist
DX: C83.38 Diffuse large B-cell lymphoma, lymph nodes of multiple sites (principal)
CPT/HCPCS: 36591; 80053; 83615; 85007; 85025; 96367; 96375; 96411; 96413; 96415; 96417; 99213; 99214; J1100; J1200; J1453; J1642; J2469; J3490; J7040; J9000; J9070; Q5123

== ENCOUNTER 2023-02-21 08:06 | Outpatient (RCR) | payer MEDICARE, SELFPAY ==
[2023-02-21] VITALS (7 sets, daily range): BP systolic 114–145; BP diastolic 64–69; PULSE 73–86; RESP 16–18; TEMP 35.7–36.4; O2SAT 93–96
[2023-02-21 08:52] LABS: Basophils % 0.8 %; Eosinophils % 0.2 %; Hematocrit 31.6 % (37.0-47.0); Hemoglobin 10.2 g/dL (11.5-15.3); Lymphocytes # 0.6 10^3/uL (0.8-4.8); Lymphocytes % 11.8 %; Mean Corpuscular HGB Conc 32.3 g/dL (30.0-36.0); Mean Corpuscular Hemoglobin 30.5 pg (28.0-34.0); Mean Corpuscular Volume 94.6 fl (81-99); Monocytes # 0.7 10^3/uL (0.2-0.9); Monocytes % 13.7 %; Neutrophils # 3.37 10^3/uL (1.8-7.7); Neutrophils % 71.4 %; Nucleated Red Blood Cells % 0 %; Platelet Count 166 10^3/cmm (130-400); Red Blood Count 3.34 10^6/uL (4.1-5.3); Red Cell Distribution Width 17.5 % (12.1-15.1); White Blood Count 4.7 10^3/uL (4.0-10.0)
[2023-02-21 09:13] LABS: Alanine Aminotransferase 14 U/L (0-33); Albumin Level 4.3 g/dL (3.5-5.2); Alkaline Phosphatase 96 U/L (35-105); Anion Gap 18.9 (5-19); Aspartate Amino Transferase 17 U/L (0-32); Blood Urea Nitrogen 10 mg/dL (8-23); Calcium 9.8 mg/dL (8.5-10.5); Carbon Dioxide 23 mmol/L (22-29); Chloride 102 mmol/L (98-107); Glucose 129 mg/dL (65-115); Lactate Dehydrogenase 261 U/L (135-214); Osmolality Calculated 291 mOsm/kg (285-295); Potassium 3.9 mmol/L (3.5-5.1); Sodium 140 mmol/L (136-145); Total Bilirubin 0.4 mg/dL (0.15-1.2); Total Protein 6.3 g/dL (6.6-8.7)
[2023-02-21] MEDS: palonosetron 0.25 mg/5 mL SDV IVP (11:15)
[2023-02-21] MEDS: acetaminophen 325 mg Tablet 650 MG PO (11:15)
[2023-02-21] MEDS: OLANZapine 5 mg TABLET PO (11:15)
[2023-02-21] MEDS: diphenhydrAMINE 50 mg/mL SDV 1mL 25 MG IVP (11:16)
[2023-02-21] MEDS: famotidine 20 mg/2 mL INJ IVP (11:16)
[2023-02-21] MEDS: sodium chloride 0.9% 500 ML 75 ML IV (11:21)
[2023-02-21] MEDS: fosaprepitant 150 MG in sodium chloride 0.9% 150 ML 300 MG IV (11:47)
[2023-02-21] MEDS: DOXOrubicin 2 mg/ml MDV 60 MG IVP (15:25)
[2023-02-21] MEDS: pegfilgrastim 6 mg/0.6 mL Kit (onpro) SUBCUT (16:37)
== END 2023-02-21 23:59 | disposition home or self-care (01) ==
LOC: ONCMED 08:06
PROVIDERS: Nurse Practitioner Family; PCP Nurse Practitioner Family; Visit Provider Specialist
DX: C83.38 Diffuse large B-cell lymphoma, lymph nodes of multiple sites (principal); Z51.12 Encounter for antineoplastic immunotherapy; Z51.11 Encounter for antineoplastic chemotherapy; G62.0 Drug-induced polyneuropathy; T45.1X5A Adverse effect of antineoplastic and immunosuppressive drugs, initial encounter; G89.3 Neoplasm related pain (acute) (chronic); Z79.899 Other long term (current) drug therapy
CPT/HCPCS: 80053; 83615; 85025; 96365; 96367; 96372; 96375; 96409; 96413; 96415; 96417; 99214; J1100; J1200; J1453; J1642; J2469; J2506; J3490; J7040; J9000; J9070; J9370; Q5123

== ENCOUNTER 2023-03-01 12:31 | Outpatient (CLI) | payer MEDICARE, SELFPAY ==
--- NOTE | 2023-03-01 13:21 | MM_ITS ---
WS: [id number] BILATERAL 3D TOMOSYNTHESIS DIGITAL SCREENING MAMMOGRAPHY WITH CAD CLINICAL INFORMATION: SCREENING HISTORY: Screening mammogram. No current complaints. COMPARISON: 2021 TECHNIQUE: Bilateral CC and MLO views. FINDINGS: Scattered fibroglandular densities bilaterally. No suspicious focal mass, asymmetry, calcifications, or architectural distortion. No evidence of malignancy. Vascular calcification IMPRESSION: MM/[place] [id number] BI-RADS: 2-Benign FOLLOW UP: 1 Year Follow-up Recommend return to annual screening mammography.
== END 2023-03-01 12:32 | disposition home or self-care (01) ==
LOC: RAD 12:32 → MOBLMAM 12:49 → RAD 13:05
PROVIDERS: PCP Nurse Practitioner Family; Visit Provider Nurse Practitioner Family
DX: Z12.31 Encounter for screening mammogram for malignant neoplasm of breast (principal)
CPT/HCPCS: 77063; 77067

== ENCOUNTER 2023-03-21 12:42 | Oncology outpatient (recurring) (ONCR) | payer MEDICARE, SELFPAY ==
[2023-03-21 13:00] VITALS: BP 139/61; PULSE 71; RESP 16; TEMP 36.7; O2SAT 96
[2023-03-21 13:10] LABS: Basophils % 0.8 %; Eosinophils % 0.8 %; Hematocrit 32.8 % (36-47); Lymphocytes # 0.6 10^3/uL (0.8-4.8); Lymphocytes % 13.1 %; Mean Corpuscular HGB Conc 32.9 g/dL (30-55); Mean Corpuscular Hemoglobin 30.2 pg (27-33); Mean Corpuscular Volume 91.6 fl (85-98); Mean Platelet Volume 11.1 fL (7.4-10.4); Monocytes # 0.4 10^3/uL (0.2-0.9); Monocytes % 8.9 %; Neutrophils # 3.58 10^3/uL (1.8-7.7); Neutrophils % 75.8 %; Nucleated Red Blood Cells % 0 %; Platelet Count 145 10^3/cmm (157-399); Red Blood Count 3.58 10^6/uL (3.85-5.65); Red Cell Distribution Width 15.9 % (12.1-15.1); White Blood Count 4.73 10^3/uL (3.29-11.43)
[2023-03-21 13:24] LABS: Alanine Aminotransferase 12 U/L (0-33); Albumin Level 4.5 g/dL (3.5-5.2); Alkaline Phosphatase 80 U/L (35-105); Anion Gap 15.9 (5-19); Aspartate Amino Transferase 21 U/L (0-32); Blood Urea Nitrogen 8 mg/dL (8-23); Carbon Dioxide 24 mmol/L (22-29); Chloride 103 mmol/L (98-107); Globulin 1.7 g/dL (1.3-4.6); Glucose 163 mg/dL (65-115); Osmolality Calculated 290 mOsm/kg (285-295); Potassium 3.9 mmol/L (3.5-5.1); Sodium 139 mmol/L (136-145); Total Bilirubin 0.4 mg/dL (0.15-1.2); Total Protein 6.2 g/dL (6.6-8.7)
[2023-03-21 13:26] LABS: Lactate Dehydrogenase 221 U/L (135-214)
== END 2023-03-21 23:59 | disposition home or self-care (01) ==
PROVIDERS: Internal Medicine Medical Oncology; PCP Nurse Practitioner Family; Visit Provider Specialist
DX: C83.38 Diffuse large B-cell lymphoma, lymph nodes of multiple sites (principal); D70.1 Agranulocytosis secondary to cancer chemotherapy; T45.1X5A Adverse effect of antineoplastic and immunosuppressive drugs, initial encounter; D64.81 Anemia due to antineoplastic chemotherapy; Z92.21 Personal history of antineoplastic chemotherapy
CPT/HCPCS: 36591; 80053; 83615; 85025; 99214; J1642

== ENCOUNTER 2023-03-30 05:59 | Outpatient (CLI) | payer MEDICARE, SELFPAY ==
--- NOTE | 2023-03-30 10:30 | PETR_ITS ---
PROCEDURE INFORMATION: Exam: PET/CT Skull Base to Mid-thigh Exam date and time: 03/30/2023 10:55 AM Age: 77 years old Clinical indication: Condition or disease; Additional info: Dlbcl - assess response to treatment LABS AND CLINICAL REPORTS: Glucose: 99 mg/dl Treatment strategy for malignancy (PET staging): Restaging (PS) TECHNIQUE: Imaging protocol: Following at least four-hour fasting and following the injection of radiopharmaceutical, low dose CT images were obtained. Then, PET images were obtained. Attenuation corrected images were constructed using the CT scan. Fused images of PET and CT were reviewed. The standardized uptake values (SUV) reported below are maximum values within a region of interest, expressed in gm/ml. Exam includes orbital meatal line to mid-thigh. Radiopharmaceutical: 14.2 mCi F-18 FDG (Fluorodeoxyglucose), IV. Time of imaging post radiopharmaceutical administration: 45.3 minutes. Injection site: Not provided. COMPARISON: PET [facility] INITIAL [id number] 11/03/2022. FINDINGS: Brain: Visualized brain has normal physiologic uptake. Pharynx: No abnormal uptake. Larynx: No abnormal uptake. Lungs, pleura and trachea: No abnormal uptake. Heart: Normal physiologic uptake. Mediastinal space: No abnormal uptake. Liver: No abnormal uptake. Gallbladder and bile ducts: No abnormal uptake. Pancreas: No abnormal uptake. Spleen: No abnormal uptake. Splenic size has decreased, 11.9 cm, previously 13.7 cm. Its max SUV is 2.5, previously 8.6. Adrenal glands: No abnormal uptake. Kidneys and ureters: Normal physiologic uptake. Stomach and bowel: No abnormal uptake. Reproductive: Post hysterectomy. Vasculature: No abnormal uptake. Lymph nodes: No abnormal uptake. No lymphadenopathy in the head, neck, chest, abdomen, pelvis or extremities. Bones/joints: No metabolically active areas. Soft tissues: No metabolically active areas. PET/PET [facility] SUBSEQ [id number] IMPRESSION: 1. No evidence of FDG avid malignant neoplasm. 2. Complete metabolic response.
== END 2023-03-30 06:00 | disposition home or self-care (01) ==
PROVIDERS: PCP Nurse Practitioner Family; Visit Provider Internal Medicine Medical Oncology
DX: C83.38 Diffuse large B-cell lymphoma, lymph nodes of multiple sites (principal)
CPT/HCPCS: 78815; A9552

== ENCOUNTER 2023-04-09 07:58 | Oncology outpatient (recurring) (ONCR) | payer MEDICARE, SELFPAY ==
[2023-04-09 08:34] VITALS: BP 148/67; PULSE 54; RESP 16; TEMP 36.2; O2SAT 99
[2023-04-09 08:47] LABS: Basophils % 0.8 %; Eosinophils # 0.2 10^3/uL (0.0-0.8); Eosinophils % 3.9 %; Hematocrit 35.8 % (36-47); Lymphocytes # 0.6 10^3/uL (0.8-4.8); Lymphocytes % 16.5 %; Mean Corpuscular Volume 91.1 fl (85-98); Mean Platelet Volume 11.1 fL (7.4-10.4); Monocytes # 0.5 10^3/uL (0.2-0.9); Monocytes % 13.4 %; Neutrophils # 2.48 10^3/uL (1.8-7.7); Neutrophils % 65.1 %; Nucleated Red Blood Cells % 0 %; Platelet Count 132 10^3/cmm (157-399); Red Blood Count 3.93 10^6/uL (3.85-5.65); White Blood Count 3.81 10^3/uL (3.29-11.43)
[2023-04-09 09:05] LABS: Alanine Aminotransferase 11 U/L (0-33); Albumin Level 4.8 g/dL (3.5-5.2); Alkaline Phosphatase 105 U/L (35-105); Anion Gap 15.6 (5-19); Aspartate Amino Transferase 15 U/L (0-32); Blood Urea Nitrogen 8 mg/dL (8-23); Calcium 9.7 mg/dL (8.5-10.5); Carbon Dioxide 25 mmol/L (22-29); Chloride 105 mmol/L (98-107); Glucose 97 mg/dL (65-115); Osmolality Calculated 292 mOsm/kg (285-295); Potassium 3.6 mmol/L (3.5-5.1); Sodium 142 mmol/L (136-145); Total Bilirubin 0.4 mg/dL (0.15-1.2); Total Protein 6.8 g/dL (6.6-8.7)
[2023-04-09 11:32] LABS: Lactate Dehydrogenase 164 U/L (135-214)
== END 2023-04-20 23:59 | disposition home or self-care (01) ==
PROVIDERS: Internal Medicine Medical Oncology; PCP Nurse Practitioner Family; Visit Provider Specialist
DX: Z53.9 Procedure and treatment not carried out, unspecified reason (principal); C83.38 Diffuse large B-cell lymphoma, lymph nodes of multiple sites; I10 Essential (primary) hypertension; E78.5 Hyperlipidemia, unspecified; Z79.899 Other long term (current) drug therapy
CPT/HCPCS: 36591; 80053; 83615; 85025; 99213; J1642

== ENCOUNTER 2023-05-14 13:38 | Oncology outpatient (recurring) (ONCR) | payer MEDICARE, SELFPAY ==
[2023-05-14 13:52] VITALS: BP 138/63; PULSE 77; RESP 16; TEMP 36.8; O2SAT 97
== END 2023-05-21 23:59 | disposition home or self-care (01) ==
PROVIDERS: PCP Nurse Practitioner Family; Visit Provider Specialist
DX: Z45.2 Encounter for adjustment and management of vascular access device (principal)
CPT/HCPCS: 96523; J1642

== ENCOUNTER 2023-06-05 12:36 | Oncology outpatient (recurring) (ONCR) | payer MEDICARE, SELFPAY ==
[2023-06-05 13:45] VITALS: BP 137/67; PULSE 70; RESP 16; TEMP 36.7; O2SAT 97
== END 2023-06-20 23:59 | disposition home or self-care (01) ==
PROVIDERS: PCP Nurse Practitioner Family; Visit Provider Radiology Radiation Oncology
DX: Z45.2 Encounter for adjustment and management of vascular access device (principal)
CPT/HCPCS: 96523; J1642

== ENCOUNTER 2023-07-02 09:14 | Oncology outpatient (recurring) (ONCR) | payer MEDICARE, SELFPAY ==
[2023-07-02 09:24] VITALS: BP 150/67; PULSE 55; RESP 16; TEMP 36.3; O2SAT 95
[2023-07-02 09:44] LABS: Basophils % 0.4 %; Eosinophils # 0.1 10^3/uL (0.0-0.8); Eosinophils % 1.5 %; Hematocrit 37.5 % (36-47); Lymphocytes # 0.8 10^3/uL (0.8-4.8); Mean Corpuscular HGB Conc 34.1 g/dL (30-55); Mean Corpuscular Hemoglobin 30.2 pg (27-33); Mean Corpuscular Volume 88.4 fl (85-98); Mean Platelet Volume 10.7 fL (7.4-10.4); Monocytes # 0.4 10^3/uL (0.2-0.9); Monocytes % 8.1 %; Neutrophils # 3.88 10^3/uL (1.8-7.7); Neutrophils % 74.6 %; Nucleated Red Blood Cells % 0 %; Platelet Count 139 10^3/cmm (157-399); Red Blood Count 4.24 10^6/uL (3.85-5.65); Red Cell Distribution Width 14.2 % (12.1-15.1)
[2023-07-02 10:01] LABS: Alanine Aminotransferase 15 U/L (0-33); Albumin Level 4.7 g/dL (3.5-5.2); Alkaline Phosphatase 110 U/L (35-105); Anion Gap 13.6 (5-19); Aspartate Amino Transferase 15 U/L (0-32); Blood Urea Nitrogen 11 mg/dL (8-23); Calcium 9.5 mg/dL (8.5-10.5); Carbon Dioxide 25 mmol/L (22-29); Chloride 104 mmol/L (98-107); Globulin 1.9 g/dL (1.3-4.6); Glucose 121 mg/dL (65-115); Lactate Dehydrogenase 157 U/L (135-214); Osmolality Calculated 289 mOsm/kg (285-295); Potassium 3.6 mmol/L (3.5-5.1); Sodium 139 mmol/L (136-145); Total Bilirubin 0.5 mg/dL (0.15-1.2); Total Protein 6.6 g/dL (6.6-8.7)
== END 2023-07-21 23:59 | disposition home or self-care (01) ==
PROVIDERS: Internal Medicine Medical Oncology; PCP Nurse Practitioner Family; Visit Provider Radiology Radiation Oncology
DX: Z45.2 Encounter for adjustment and management of vascular access device (principal); C83.38 Diffuse large B-cell lymphoma, lymph nodes of multiple sites; Z95.828 Presence of other vascular implants and grafts; Z79.899 Other long term (current) drug therapy
CPT/HCPCS: 36591; 80053; 83615; 85025; 99214; J1642

== ENCOUNTER 2023-07-30 08:42 | Outpatient (CLI) | payer MEDICARE, SELFPAY ==
--- NOTE | 2023-07-30 09:00 | PETR_ITS ---
PROCEDURE INFORMATION: Exam: PET/CT Whole Body Exam date and time: 07/30/2023 9:43 AM Age: 78 years old Clinical indication: Condition or disease; Primary cancer: Diffuse large b cell lymphoma; Follow-up oncological assessment; Additional info: Compare to previous, perform 1 week prior to patient's office visit in oncology LABS AND CLINICAL REPORTS: Glucose: 120 mg/dl Treatment strategy for malignancy (PET staging): Restaging (PS) TECHNIQUE: Imaging protocol: Following at least four-hour fasting and following the injection of radiopharmaceutical, low dose CT images were obtained. Then, PET images were obtained. Attenuation corrected images were constructed using the CT scan. Fused images of PET and CT were reviewed. The standardized uptake values (SUV) reported below are maximum values within a region of interest, expressed in gm/ml. Exam includes the whole body. Radiopharmaceutical: 11.76 mCi F-18 FDG (Fluorodeoxyglucose), IV. Time of imaging post radiopharmaceutical administration: 1 hour Injection site: site COMPARISON: PT PET [facility] SUBSEQ [id number] 03/30/2023 10:55 AM FINDINGS: Tubes, catheters and devices: There is a right chest MediPort which is unchanged. Brain: Visualized brain has normal physiologic uptake. Pharynx: No abnormal uptake. Larynx: No abnormal uptake. Lungs, pleura and trachea: No abnormal uptake. Heart: Normal physiologic uptake. Mediastinal space: No abnormal uptake. Liver: No abnormal uptake. Gallbladder and bile ducts: Stable cholecystectomy. Pancreas: No abnormal uptake. Spleen: The spleen measures 11.3 cm without significant enlargement or abnormal uptake on today's study, similar to previous. Adrenal glands: No abnormal uptake. Kidneys and ureters: Normal physiologic uptake. Stomach and bowel: No abnormal uptake. Reproductive: Stable hysterectomy change. Vasculature: No abnormal uptake. Lymph nodes: No abnormal uptake. No lymphadenopathy in the head, neck, chest, abdomen, pelvis, and extremities. Bones/joints: No abnormal uptake in the visualized axial and appendicular skeleton. Soft tissues: No abnormal uptake in the visualized head, neck, chest, abdomen, pelvis, and extremities. PET/PET [facility] SUBSEQ [id number] IMPRESSION: No evidence of metabolically active disease. Deauville score of 1.
== END 2023-07-30 08:43 | disposition home or self-care (01) ==
PROVIDERS: PCP Nurse Practitioner Family; Visit Provider Internal Medicine
DX: C83.38 Diffuse large B-cell lymphoma, lymph nodes of multiple sites (principal)
CPT/HCPCS: 78816; A9552

== ENCOUNTER 2023-10-07 10:30 | Oncology outpatient (recurring) (ONCR) | payer MEDICARE, SELFPAY ==
[2023-10-07 11:07] LABS: Basophils % 0.3 %; Eosinophils # 0.1 10^3/uL (0.0-0.8); Hematocrit 36.9 % (36-47); Lymphocytes # 0.9 10^3/uL (0.8-4.8); Mean Corpuscular HGB Conc 34.4 g/dL (30-55); Mean Corpuscular Hemoglobin 31.5 pg (27-33); Mean Corpuscular Volume 91.6 fl (85-98); Mean Platelet Volume 11.3 fL (7.4-10.4); Monocytes # 0.5 10^3/uL (0.2-0.9); Monocytes % 7.4 %; Neutrophils # 4.58 10^3/uL (1.8-7.7); Neutrophils % 75.8 %; Nucleated Red Blood Cells % 0 %; Platelet Count 140 10^3/cmm (157-399); Red Blood Count 4.03 10^6/uL (3.85-5.65); Red Cell Distribution Width 13.5 % (12.1-15.1); White Blood Count 6.05 10^3/uL (3.29-11.43)
[2023-10-07 11:38] LABS: Alanine Aminotransferase 19 U/L (0-33); Albumin Level 4.7 g/dL (3.5-5.2); Alkaline Phosphatase 113 U/L (35-105); Anion Gap 15.4 (5-19); Aspartate Amino Transferase 18 U/L (0-32); Blood Urea Nitrogen 9 mg/dL (8-23); Calcium 9.4 mg/dL (8.5-10.5); Carbon Dioxide 25 mmol/L (22-29); Chloride 102 mmol/L (98-107); Globulin 1.8 g/dL (1.3-4.6); Glucose 105 mg/dL (65-115); Lactate Dehydrogenase 178 U/L (135-214); Osmolality Calculated 287 mOsm/kg (285-295); Potassium 3.4 mmol/L (3.5-5.1); Sodium 139 mmol/L (136-145); Total Bilirubin 0.5 mg/dL (0.15-1.2); Total Protein 6.5 g/dL (6.6-8.7)
== END 2023-10-20 23:59 | disposition home or self-care (01) ==
PROVIDERS: Internal Medicine; PCP Nurse Practitioner Family; Visit Provider Radiology Radiation Oncology
DX: Z45.2 Encounter for adjustment and management of vascular access device (principal); C83.38 Diffuse large B-cell lymphoma, lymph nodes of multiple sites; Z95.828 Presence of other vascular implants and grafts; Z79.899 Other long term (current) drug therapy
CPT/HCPCS: 36591; 80053; 83615; 85025; 99214; J1642

== ENCOUNTER 2023-11-04 13:03 | Oncology outpatient (recurring) (ONCR) | payer MEDICARE, SELFPAY | END 2023-11-19 23:59 | disposition home or self-care (01) | PROVIDERS: PCP Nurse Practitioner Family; Visit Provider Radiology Radiation Oncology | DX: Z45.2 Encounter for adjustment and management of vascular access device (principal) | CPT/HCPCS: 96523; J1642 ==

== ENCOUNTER 2023-12-02 13:19 | Oncology outpatient (recurring) (ONCR) | payer MEDICARE, SELFPAY | END 2023-12-20 23:59 | disposition home or self-care (01) | PROVIDERS: PCP Nurse Practitioner Family; Visit Provider Radiology Radiation Oncology | DX: Z45.2 Encounter for adjustment and management of vascular access device (principal); Z53.9 Procedure and treatment not carried out, unspecified reason ==

== ENCOUNTER 2024-01-07 10:55 | Oncology outpatient (recurring) (ONCR) | payer MEDICARE, SELFPAY | END 2024-01-19 23:59 | disposition home or self-care (01) | PROVIDERS: PCP Nurse Practitioner Family; Visit Provider Radiology Radiation Oncology | DX: Z45.2 Encounter for adjustment and management of vascular access device (principal) | CPT/HCPCS: 96523 ==

== ENCOUNTER 2024-02-06 10:30 | Oncology outpatient (recurring) (ONCR) | payer MEDICARE, SELFPAY | END 2024-02-19 23:59 | disposition home or self-care (01) | LOC: ONCMED 10:30 | PROVIDERS: PCP Nurse Practitioner Family; Visit Provider Radiology Radiation Oncology | DX: Z45.2 Encounter for adjustment and management of vascular access device (principal); C83.38 Diffuse large B-cell lymphoma, lymph nodes of multiple sites | CPT/HCPCS: 96523 ==

== ENCOUNTER 2024-02-25 10:24 | Outpatient (CLI) | payer MEDICARE, SELFPAY ==
[2024-02-25] MEDS: iohexol 350 mg/mL 500 mL Btl (per mL) PO (11:54)
[2024-02-25] MEDS: iohexol 350 mg/mL 500 mL Btl (per mL) IV (11:56)
--- NOTE | 2024-02-25 12:00 | CTR_ITS ---
PROCEDURE INFORMATION: Exam: CT Chest With Contrast; Diagnostic Exam date and time: 02/25/2024 11:50 AM Age: 78 years old Clinical indication: Condition or disease; Other: Lymphoma; Prior surgery; Surgery date: 6+ months; Surgery type: Port, hyst, gb, appy; Additional info: Surveillance, please schedule week of 02/24/24 as she has an oncology f/u TECHNIQUE: Imaging protocol: Diagnostic computed tomography of the chest with contrast. Radiation optimization: All CT scans at this facility use at least one of these dose optimization techniques: automated exposure control; mA and/or kV adjustment per patient size (includes targeted exams where dose is matched to clinical indication); or iterative reconstruction. Contrast material: OMNI 350; Contrast volume: 100 ml; Contrast route: INTRAVENOUS (IV); COMPARISON: PT PET [facility] SUBSEQ [id number] 07/30/2023 9:43 AM RADIATION DOSE METRICS: Total DLP (mGy-cm): 664.77 FINDINGS: Tubes, catheters and devices: A right-sided VAD is in good position with the catheter tip in the lower SVC. Lungs: Both lungs demonstrate diffuse interstitial coarsening which is felt to be chronic. No lung mass or infiltrate. Pleural spaces: Unremarkable. No pneumothorax. No pleural effusion. Heart: Unremarkable. No cardiomegaly. No pericardial effusion. Lymph nodes: Unremarkable. No enlarged lymph nodes. Vasculature: Unremarkable. No aortic aneurysm. Bones/joints: Unremarkable. No acute fracture. Soft tissues: Unremarkable. PROCEDURE INFORMATION: Exam: CT Abdomen And Pelvis With Contrast Exam date and time: 02/25/2024 11:50 AM Age: 78 years old Clinical indication: Condition or disease; Other: Lymphoma; Prior surgery; Surgery date: 6+ months; Surgery type: Port, hyst, gb, appy; Additional info: Surveillance, please schedule week of 02/24/24 as she has an oncology f/u TECHNIQUE: Imaging protocol: Computed tomography of the abdomen and pelvis with contrast. Radiation optimization: All CT scans at this facility use at least one of these dose optimization techniques: automated exposure control; mA and/or kV adjustment per patient size (includes targeted exams where dose is matched to clinical indication); or iterative reconstruction. Contrast material: OMNI 350; Contrast volume: 100 ml; Contrast route: INTRAVENOUS (IV); COMPARISON: PT PET [facility] SUBSEQ [id number] 07/30/2023 9:43 AM RADIATION DOSE METRICS: Total DLP (mGy-cm): 664.77 FINDINGS: Lungs: Lung bases are clear. No pleural effusion. Liver: Normal. No mass. Gallbladder and biliary ducts: The gallbladder has been resected. Pancreas: Normal. No ductal dilation. Spleen: Moderate splenomegaly is noted. Adrenal glands: Normal. No mass. Kidneys and ureters: Normal. No hydronephrosis. Stomach and bowel: There is a moderate amount of stool noted throughout the colon. No bowel distension. Appendix: No evidence of appendicitis. Intraperitoneal space: Unremarkable. No free air. No significant fluid collection. Vasculature: Unremarkable. No abdominal aortic aneurysm. Lymph nodes: Unremarkable. No enlarged lymph nodes. Urinary bladder: Unremarkable as visualized. Reproductive: Unremarkable as visualized. Bones/joints: Unremarkable. No acute fracture. Soft tissues: Unremarkable. CT/CT chest abdpel w/*[id number] IMPRESSION: There is no evidence of active neoplastic disease. IMPRESSION: 1. There is no evidence of active neoplastic disease. 2. Constipation noted 3. Stable splenomegaly
== END 2024-02-25 10:25 | disposition home or self-care (01) ==
LOC: RAD 10:25
PROVIDERS: PCP Nurse Practitioner Family; Visit Provider Nurse Practitioner Family
DX: C83.38 Diffuse large B-cell lymphoma, lymph nodes of multiple sites (principal)
CPT/HCPCS: 71260; 74177; Q9967

== ENCOUNTER 2024-03-04 13:18 | Oncology outpatient (recurring) (ONCR) | payer MEDICARE, SELFPAY ==
[2024-02-25 11:16] LABS: Basophils % 0.4 %; Eosinophils # 0.1 10^3/uL (0.0-0.8); Eosinophils % 1.3 %; Hematocrit 40.1 % (36-47); Mean Corpuscular HGB Conc 34.7 g/dL (30-55); Mean Corpuscular Hemoglobin 31.6 pg (27-33); Mean Corpuscular Volume 91.1 fl (85-98); Mean Platelet Volume 11.2 fL (7.4-10.4); Monocytes # 0.4 10^3/uL (0.2-0.9); Monocytes % 6.1 %; Neutrophils # 5.32 10^3/uL (1.8-7.7); Neutrophils % 76.6 %; Nucleated Red Blood Cells % 0 %; Platelet Count 143 10^3/cmm (157-399); Red Cell Distribution Width 13.3 % (12.1-15.1); White Blood Count 6.94 10^3/uL (3.29-11.43)
[2024-02-25 11:36] LABS: Alanine Aminotransferase 14 U/L (0-33); Albumin Level 4.8 g/dL (3.5-5.2); Alkaline Phosphatase 105 U/L (35-105); Anion Gap 15.8 (5-19); Aspartate Amino Transferase 16 U/L (0-32); Blood Urea Nitrogen 13 mg/dL (8-23); Calcium 9.6 mg/dL (8.5-10.5); Carbon Dioxide 24 mmol/L (22-29); Chloride 103 mmol/L (98-107); Globulin 2.1 g/dL (1.3-4.6); Glucose 111 mg/dL (65-115); Lactate Dehydrogenase 210 U/L (135-214); Osmolality Calculated 289 mOsm/kg (285-295); Potassium 3.8 mmol/L (3.5-5.1); Sodium 139 mmol/L (136-145); Total Bilirubin 0.7 mg/dL (0.15-1.2); Total Protein 6.9 g/dL (6.6-8.7)
== END 2024-03-21 23:59 | disposition home or self-care (01) ==
PROVIDERS: Nurse Practitioner Family; PCP Nurse Practitioner Family; Visit Provider Radiology Radiation Oncology
DX: C83.38 Diffuse large B-cell lymphoma, lymph nodes of multiple sites; Z92.21 Personal history of antineoplastic chemotherapy
CPT/HCPCS: 36591; 71260; 74177; 80053; 83615; 85025; 99214; Q9967

== ENCOUNTER 2024-04-10 09:20 | Oncology outpatient (recurring) (ONCR) | payer MEDICARE, SELFPAY | END 2024-04-20 23:59 | disposition home or self-care (01) | LOC: ONCMED 09:21 | PROVIDERS: PCP Nurse Practitioner Family; Visit Provider Radiology Radiation Oncology | DX: Z45.2 Encounter for adjustment and management of vascular access device | CPT/HCPCS: 96523 ==

== ENCOUNTER 2024-04-22 11:20 | Outpatient (CLI) | payer MEDICARE, SELFPAY ==
--- NOTE | 2024-04-22 11:40 | MM_ITS ---
WS: [id number] VIEWS: MLO and CC views both breasts. 3D digital tomosynthesis is also included in this exam. Comparison made with prior exam of 11/27/2013, 12/31/2014, 02/03/2016, 06/08/2019, 07/05/2020, 12/27/2021, 03/01/2023.. Findings: The breasts are heterogeneously dense, which may obscure small masses. No sign of suspicious mass, tumor calcification or architectural distortion. MM/MM scr BI tomosynthesis [id number] Impression: BI-RADS: 2 - Benign FOLLOW-UP: 1 Year Follow-up This mammogram was also analyzed by the Computer Aided Detection System R2 Imag e Hot Plate [employer].
== END 2024-04-22 11:21 | disposition home or self-care (01) ==
LOC: MOBLMAM 11:23
PROVIDERS: PCP Nurse Practitioner Family; Visit Provider Nurse Practitioner Family
DX: Z12.31 Encounter for screening mammogram for malignant neoplasm of breast (principal); R92.333 Mammographic heterogeneous density, bilateral breasts
CPT/HCPCS: 77063; 77067

== ENCOUNTER 2024-04-30 12:15 | Oncology outpatient (recurring) (ONCR) | payer OTHER, SELFPAY | END 2024-05-21 23:59 | disposition home or self-care (01) | PROVIDERS: PCP Nurse Practitioner Family; Visit Provider Radiology Radiation Oncology | DX: Z45.2 Encounter for adjustment and management of vascular access device (principal) | CPT/HCPCS: 96523 ==

== ENCOUNTER 2024-04-30 12:29 | Outpatient (CLI) | payer OTHER, SELFPAY ==
--- NOTE | 2024-04-30 13:00 | MR_ITS ---
WS: [id number] MRI BRAIN WITH AND WITHOUT CONTRAST HISTORY: headache, dizziness COMPARISON: None available. TECHNIQUE: Multiplanar imaging performed through the brain with MultiHance 13 ml's IV. Normal diffusion imaging. No acute infarct. Moderate patchy and confluent periventricular white matte r disease. Remote lacunar infarct RIGHT cerebellum. No susceptibility artifacts or prior lacunar infarcts. Ventricles and extra-axial spaces are normal. Clivus and pituitary gland are normal. Visualized posterior fossa and brainstem are also normal. Postcontrast images are negative for masses or vascular malformations. Dural venous sinuses are normal. Paranasal sinuses: Well aerated with no significant disease. Mastoid air cells: Normal. Calvarium and scalp: Normal. MR/MR head wo/w con [id number] IMPRESSION: 1. No acute infarct or ischemia. 2. Moderate small vessel ischemic changes surrounding the ventricles. 3. Small lacunar infarct RIGHT cerebellum. 4. No evidence for metastatic disease or mass within the brain.
[2024-04-30] MEDS: gadobenate dimeglumine 20 mL vial IV (13:21)
== END 2024-04-30 12:30 | disposition home or self-care (01) ==
LOC: RAD 12:29
PROVIDERS: PCP Nurse Practitioner Family; Visit Provider Internal Medicine Medical Oncology
DX: C83.38 Diffuse large B-cell lymphoma, lymph nodes of multiple sites (principal); G31.89 Other specified degenerative diseases of nervous system; R51.9 Headache, unspecified; R42 Dizziness and giddiness; R07.9 Chest pain, unspecified
CPT/HCPCS: 70553; 93005

== ENCOUNTER 2024-08-19 07:45 | Oncology outpatient (recurring) (ONCR) | payer MEDICARE, SELFPAY ==
[2024-07-28 09:51] LABS: Basophils % 0.4 %; Eosinophils # 0.1 10^3/uL (0.0-0.8); Eosinophils % 0.7 %; Hematocrit 38.9 % (36-47); Lymphocytes # 0.9 10^3/uL (0.8-4.8); Lymphocytes % 10.9 %; Mean Corpuscular HGB Conc 34.2 g/dL (30-55); Mean Corpuscular Hemoglobin 31.1 pg (27-33); Mean Corpuscular Volume 91.1 fl (85-98); Mean Platelet Volume 11.1 fL (7.4-10.4); Monocytes # 0.8 10^3/uL (0.2-0.9); Monocytes % 9.6 %; Neutrophils # 6.33 10^3/uL (1.8-7.7); Neutrophils % 77.9 %; Nucleated Red Blood Cells % 0 %; Platelet Count 144 10^3/cmm (157-399); Red Blood Count 4.27 10^6/uL (3.85-5.65); Red Cell Distribution Width 12.7 % (12.1-15.1); White Blood Count 8.13 10^3/uL (3.29-11.43)
[2024-07-28 10:13] LABS: Alanine Aminotransferase 11 U/L (0-33); Albumin Level 4.4 g/dL (3.5-5.2); Alkaline Phosphatase 134 U/L (35-105); Anion Gap 17.5 (5-19); Aspartate Amino Transferase 13 U/L (0-32); Blood Urea Nitrogen 10 mg/dL (8-23); Calcium 9.4 mg/dL (8.5-10.5); Carbon Dioxide 25 mmol/L (22-29); Chloride 104 mmol/L (98-107); Creatinine Clr Calc Pharmacy 51.4118; Globulin 2.2 g/dL (1.3-4.6); Glucose 104 mg/dL (65-115); Lactate Dehydrogenase 184 U/L (135-214); Osmolality Calculated 295 mOsm/kg (285-295); Potassium 3.5 mmol/L (3.5-5.1); Sodium 143 mmol/L (136-145); Total Bilirubin 0.6 mg/dL (0.15-1.2); Total Protein 6.6 g/dL (6.6-8.7)
--- NOTE | 2024-08-19 07:45 | USCV_ITS ---
Linda Thomson Age: 79 Gender: F : 1945 Exam Date: 08/19/2024 07:53 Ordering Phys: Rosina Landry MD ([email or web address]) Technologist: [place] [facility] [place]: cp BP: 120 / 70 HR: 64 Rhythm: Sinus Technical Quality: Adequate MEASUREMENTS (Male / Female) Normal Values 2D ECHO LV Diastolic Diameter PLAX 4.4 cm 4.2 - 5.9 / 3.9 - 5.3 cm IVS Diastolic Thickness 1.0 cm 0.6 - 1.0 / 0.6 - 0.9 cm IVS Systolic Thickness 1.3 cm LVPW Diastolic Thickness 1.2 cm 0.6 - 1.0 / 0.6 - 0.9 cm LVPW Systolic Thickness 1.5 cm LVOT Diameter 2.0 cm LV Ejection Fraction 2D Teich 71.9 % LV Ejection Fraction MOD 4C 55.2 % LV Ejection Fraction MOD 2C 67.8 % LV Ejection Fraction 2C AL 67.0 % LA Diameter 3.7 cm RA Systolic Volume 4C AL 19.3 ml RA Systolic Volume 4C MOD 19.2 ml LA Sys Volume AL 51.1 cm cubed LA Sys Volume Index AL 30.3 cm cubed/m squared Aorta at Sinotubular Diameter 2.6 cm IVC Diameter 2.4 cm M-MODE LA Ao Ratio MM 1.4 AV Cusp Separation MM 1.6 cm DOPPLER AV Peak Velocity 309.7 cm/s LVOT Peak Velocity 100.0 cm/s AV Area Cont Eq vti 2.3 cm squared AV Area Cont Eq pk 1.0 cm squared MV Peak Velocity 106.0 cm/s MV Area PHT 2.9 cm squared Mitral E to A Ratio 0.8 TR Peak Velocity 189.0 cm/s TR Peak Gradient 14.3 mmHg TV Peak E Velocity 87.0 cm/s PV Peak Velocity 117.0 cm/s FINDINGS Left Ventricle Normal left ventricular size, systolic function and wall thickness, with no regional wall motion abnormalities. Left ventricular ejection fraction is estimated at 60 %. Grade I/IV diastolic dysfunction (abnormal relaxation filling pattern), normal to mildly elevated filling pressures. Right Ventricle The right ventricle is normal in size and function. Right Atrium The right atrium is normal in size. Left Atrium The left atrium is normal in size. Mitral Valve Structurally normal mitral valve without significant stenosis or prolapse. There is no mitral regurgitation. Aortic Valve Mild aortic valve calcification. No aortic valve stenosis. Mild aortic valve regurgitation. Tricuspid Valve Structurally normal tricuspid valve without significant stenosis or regurgitation. Pulmonic Valve Structurally normal pulmonic valve without significant stenosis. There is no pulmonic regurgitation. Pericardium Normal pericardium without effusion. Aorta Normal ascending aorta dimension. IVC The inferior vena cava appears normal. CONCLUSIONS Normal left ventricular size, systolic function and wall thickness, with no regional wall motion abnormalities. Left ventricular ejection fraction is estimated at 60 %. Grade I/IV diastolic dysfunction (abnormal relaxation filling pattern), normal to mildly elevated filling pressures. Mild aortic valve calcification. No aortic valve stenosis. Mild aortic valve regurgitation. There is no pericardial effusion. Right atrial pressure is around 5 mm of mercury. Erick Fierro MD (Electronically Signed) Final Date: 19 August 2024 17:00 S
== END 2024-08-21 23:59 | disposition home or self-care (01) ==
LOC: RAD 08-20 00:01 → ONCMED 08-20 09:32
PROVIDERS: Nurse Practitioner Family; PCP Nurse Practitioner Family; Visit Provider Internal Medicine Cardiovascular Disease
DX: R06.09 Other forms of dyspnea (principal); I51.89 Other ill-defined heart diseases; I70.0 Atherosclerosis of aorta; I35.1 Nonrheumatic aortic (valve) insufficiency
CPT/HCPCS: 80053; 83615; 85025; 93306; 99213; 99214

== ENCOUNTER → 2024-08-31 12:48 | Outpatient (BNVA) | payer MEDICARE, SELFPAY | PROVIDERS: PCP Nurse Practitioner Family; Visit Provider Student in an Organized Health Care Education/Training Program | DX: Z95.828 Presence of other vascular implants and grafts (principal); R03.0 Elevated blood-pressure reading, without diagnosis of hypertension | CPT/HCPCS: 99204 ==

== ENCOUNTER 2024-09-15 09:00 | Oncology outpatient (recurring) (ONCR) | payer MEDICARE, SELFPAY ==
[2024-09-02] MEDS: iohexol 350 mg/mL 500 mL Btl (per mL) PO (12:09)
[2024-09-02] MEDS: iohexol 350 mg/mL 500 mL Btl (per mL) IV (12:20)
--- NOTE | 2024-09-02 13:00 | CT_ITS ---
WS: [id number] CT CHEST, ABDOMEN AND PELVIS WITH CONTRAST HISTORY: Surveillance B-cell lymphoma. TECHNIQUE: Contiguous 5 mm axial imaging performed through the chest, abdomen and pelvis with IV contrast, oral contrast has been provided. Coronal and sagittal reformats chest. Coronal and sagittal reformats through the abdomen and pelvis. All CT scans at [facility] use at least one of these dose optimization techniques: automated exposure control; mA and/or kV adjustment per patient size (includes targeted exams where dose is matched to clinical indication); or iterative reconstruction. CONTRAST: Omnipaque 350; 100 mL IV. DLP: 662.37 mGy.cm COMPARISON: 02/25/2024, PET/CT 07/30/[address]: Poor inspiration resulting in crowding of the lung markings. With better inspiration lung markings with probably improved. No area of dense consolidation. No air trapping. No pericardial or pleural effusions. Heart is normal size. No mediastinal or hilar adenopathy. No axillary lymph nodes. Very small hiatal hernia. Normal size aorta. Normal size pulmonary artery. Abdomen CT: Normal size liver and spleen. Normal portal vein. Mild atrophy pancreas. No adrenal mass. No renal obstruction. There are a few very tiny cortical hypodensities which are too small to characterize but unchanged. No renal obstruction. Mild atherosclerosis abdominal aorta. Mesenteric arteries are normally enhancing. Stomach is well distended with oral contrast. No small bowel obstruction or colon obstruction. Prior appendectomy. No diverticulitis. Possible rectocele. No ascites or adenopathy. Pelvic CT: No free fluid. No adenopathy. Prior hysterectomy. Nondistended bladder. Bladder wall is mildly thickened but this is due to under distention. 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 No destructive bone lesions. CT/CT chest abdpel w/*[id number] IMPRESSION: 1. No evidence for recurrent lymphadenopathy within the chest, abdomen or pelv is. 2. Normal size spleen. 3. No pulmonary nodules or masses. 4. Normal liver and adrenal glands. 5. Prior appendectomy and cholecystectomy.
== END 2024-09-18 23:59 | disposition home or self-care (01) ==
PROVIDERS: PCP Nurse Practitioner Family; Visit Provider Nurse Practitioner Family
DX: Z53.9 Procedure and treatment not carried out, unspecified reason; Z08 Encounter for follow-up examination after completed treatment for malignant neoplasm; Z85.72 Personal history of non-Hodgkin lymphomas; Z45.2 Encounter for adjustment and management of vascular access device; Z95.828 Presence of other vascular implants and grafts; M54.50 Low back pain, unspecified; M25.552 Pain in left hip; M25.551 Pain in right hip; Z79.899 Other long term (current) drug therapy
CPT/HCPCS: 71260; 74177; 96523; 99214

== ENCOUNTER 2024-10-26 07:54 | Oncology outpatient (recurring) (ONCR) | payer MEDICARE, SELFPAY ==
[2024-10-26 08:28] LABS: Basophils % 0.3 %; Eosinophils # 0.1 10^3/uL (0.0-0.8); Eosinophils % 1.5 %; Hematocrit 38.8 % (36-47); Lymphocytes # 1.1 10^3/uL (0.8-4.8); Mean Corpuscular HGB Conc 34.3 g/dL (30-55); Mean Corpuscular Volume 93.5 fl (85-98); Mean Platelet Volume 11.2 fL (7.4-10.4); Monocytes # 0.5 10^3/uL (0.2-0.9); Monocytes % 6.7 %; Neutrophils # 4.97 10^3/uL (1.8-7.7); Neutrophils % 74.6 %; Nucleated Red Blood Cells % 0 %; Platelet Count 144 10^3/cmm (157-399); Red Blood Count 4.15 10^6/uL (3.85-5.65); Red Cell Distribution Width 14.3 % (12.1-15.1); White Blood Count 6.67 10^3/uL (3.29-11.43)
[2024-10-26 08:59] LABS: Alanine Aminotransferase 16 U/L (0-33); Albumin Level 4.5 g/dL (3.5-5.2); Alkaline Phosphatase 87 U/L (35-105); Anion Gap 15.7 (5-19); Aspartate Amino Transferase 15 U/L (0-32); Blood Urea Nitrogen 11 mg/dL (8-23); Calcium 9.8 mg/dL (8.5-10.5); Carbon Dioxide 26 mmol/L (22-29); Chloride 105 mmol/L (98-107); Creatinine Clr Calc Pharmacy 51.9836; Glucose 129 mg/dL (65-115); Lactate Dehydrogenase 172 U/L (135-214); Osmolality Calculated 297 mOsm/kg (285-295); Potassium 3.7 mmol/L (3.5-5.1); Sodium 143 mmol/L (136-145); Total Bilirubin 0.5 mg/dL (0.15-1.2); Total Protein 6.5 g/dL (6.6-8.7)
== END 2024-11-18 23:59 | disposition home or self-care (01) ==
PROVIDERS: PCP Nurse Practitioner Family; Visit Provider Nurse Practitioner Family
DX: Z08 Encounter for follow-up examination after completed treatment for malignant neoplasm (principal); M25.552 Pain in left hip; Z95.828 Presence of other vascular implants and grafts; Z92.21 Personal history of antineoplastic chemotherapy; Z92.25 Personal history of immunosuppression therapy; Z85.72 Personal history of non-Hodgkin lymphomas
CPT/HCPCS: 36591; 80053; 83615; 85025; 99214

== ENCOUNTER 2024-11-23 12:59 | Oncology outpatient (recurring) (ONCR) | payer MEDICARE, SELFPAY | END 2024-12-19 23:59 | disposition home or self-care (01) | LOC: ONCMED 13:00 | PROVIDERS: PCP Nurse Practitioner Family; Visit Provider Nurse Practitioner Family | DX: Z45.2 Encounter for adjustment and management of vascular access device (principal) | CPT/HCPCS: 96523 ==

== ENCOUNTER 2024-12-21 13:09 | Oncology outpatient (recurring) (ONCR) | payer MEDICARE, SELFPAY | END 2025-01-18 23:59 | disposition home or self-care (01) | LOC: ONCMED 13:09 | PROVIDERS: PCP Nurse Practitioner Family; Visit Provider Nurse Practitioner Family | DX: Z45.2 Encounter for adjustment and management of vascular access device (principal); Z95.828 Presence of other vascular implants and grafts | CPT/HCPCS: 96523 ==

== ENCOUNTER 2025-02-02 08:50 | Oncology outpatient (recurring) (ONCR) | payer MEDICARE, SELFPAY | END 2025-02-18 23:59 | disposition home or self-care (01) | PROVIDERS: PCP Nurse Practitioner Family; Visit Provider Nurse Practitioner Family | DX: Z45.2 Encounter for adjustment and management of vascular access device (principal); Z95.828 Presence of other vascular implants and grafts | CPT/HCPCS: 96523 ==

== ENCOUNTER 2025-03-08 10:53 | Oncology outpatient (recurring) (ONCR) | payer MEDICARE, SELFPAY ==
[2025-03-08 11:22] LABS: Hematocrit 40.2 % (36-47); Hemoglobin 13.80 g/dL (11.27-16.99); Mean Corpuscular HGB Conc 34.3 g/dL (30-55); Mean Corpuscular Hemoglobin 31.7 pg (27-33); Mean Corpuscular Volume 92.4 fl (85-98); Nucleated Red Blood Cells % 0 %; Platelet Count 129 10^3/cmm (157-399); Red Blood Count 4.35 10^6/uL (3.85-5.65); White Blood Count 10.46 10^3/uL (3.29-11.43)
[2025-03-08 11:44] LABS: Alanine Aminotransferase 37 U/L (0-33); Albumin Level 4.2 g/dL (3.5-5.2); Alkaline Phosphatase 71 U/L (35-105); Anion Gap 16.1 (5-19); Aspartate Amino Transferase 17 U/L (0-32); Blood Urea Nitrogen 16 mg/dL (8-23); Calcium 9.4 mg/dL (8.5-10.5); Carbon Dioxide 27 mmol/L (22-29); Chloride 100 mmol/L (98-107); Creatinine Clr Calc Pharmacy 45.2366; Globulin 1.9 g/dL (1.3-4.6); Glucose 136 mg/dL (65-115); Osmolality Calculated 293 mOsm/kg (285-295); Potassium 3.1 mmol/L (3.5-5.1); Sodium 140 mmol/L (136-145); Total Protein 6.1 g/dL (6.6-8.7)
== END 2025-03-21 23:59 | disposition home or self-care (01) ==
PROVIDERS: Internal Medicine Medical Oncology; PCP Nurse Practitioner Family; Visit Provider Nurse Practitioner Family
DX: C83.38 Diffuse large B-cell lymphoma, lymph nodes of multiple sites (principal); R03.0 Elevated blood-pressure reading, without diagnosis of hypertension; M25.552 Pain in left hip; Z95.828 Presence of other vascular implants and grafts
CPT/HCPCS: 36591; 80053; 83615; 85025; 99213

== ENCOUNTER 2025-04-16 08:00 | Outpatient (CLI) | payer MEDICARE, SELFPAY | END 2025-04-16 08:01 | disposition home or self-care (01) | LOC: RAD 04-22 08:58 | PROVIDERS: PCP Nurse Practitioner Family; Visit Provider Internal Medicine Medical Oncology | DX: Z53.9 Procedure and treatment not carried out, unspecified reason (principal) | CPT/HCPCS: 78815; A9552 ==

== ENCOUNTER 2025-04-19 11:00 | Oncology outpatient (recurring) (ONCR) | payer MEDICARE, SELFPAY ==
--- NOTE | 2025-04-16 10:12 | PETR_ITS ---
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 Then, PET images were obtained. Attenuation corrected images were constructed using the CT scan. Fused images of PET and CT were reviewed. The standardized uptake values (SUV) reported below are maximum values within a region of interest, expressed in gm/ml. Exam includes orbital meatal line to mid-thigh. Radiopharmaceutical: 11 mCi F-18 FDG (Fluorodeoxyglucose), IV. Injection site: LAC COMPARISON: PT PET WB melanoma SUBSEQ [id number] 07/30/2023 9:43 AM FINDINGS: Tubes, catheters and devices: Right chest wall port tip terminates in the right atrium. Brain: Visualized brain has normal physiologic uptake. Pharynx: No abnormal uptake. Larynx: No abnormal uptake. Lungs, pleura and trachea: No abnormal uptake. Heart: Normal physiologic uptake. Coronary arteries: Mild coronary artery calcification. Mediastinal space: No abnormal uptake. Liver: No abnormal uptake. Gallbladder and biliary ducts: Status post cholecystectomy. No abnormal uptake. Pancreas: No abnormal uptake. Spleen: No abnormal uptake. Adrenal glands: No abnormal uptake. Kidneys and ureters: Normal physiologic uptake. Stomach and bowel: No abnormal uptake. Vasculature: No abnormal uptake. Lymph nodes: FDG avid precarinal lymph node measuring 6 mm in short axis with SUV max of 4.4 and right paratracheal lymph node measuring 5 mm in short axis with SUV max of 4.9. Skeleton: No abnormal uptake in the visualized axial and appendicular skeleton. Soft tissues: Two adjacent subcentimeter nodules in the left breast with SUV max of 10.3. METRICS: Mediastinal blood pool: SUV max = 2.9 Liver uptake: SUV max = 3.2 PET/PET skull to thigh SUBS [id number] IMPRESSION: 1. Two adjacent hypermetabolic subcentimeter nodules in the left breast are concerning for active lymphoma. Deauville 5. 2. Mildly FDG avid subcentimeter precarinal and right paratracheal lymph nodes are also concerning for lymphoma.
== END 2025-04-20 23:59 | disposition home or self-care (01) ==
PROVIDERS: PCP Nurse Practitioner Family; Visit Provider Nurse Practitioner Family
DX: Z53.9 Procedure and treatment not carried out, unspecified reason; Z45.2 Encounter for adjustment and management of vascular access device
CPT/HCPCS: 78815; 96523; A9552

== ENCOUNTER 2025-04-27 10:45 | Oncology outpatient (recurring) (ONCR) | payer MEDICARE, SELFPAY | END 2025-05-21 23:59 | disposition home or self-care (01) | LOC: ONCMED 10:45 | PROVIDERS: PCP Nurse Practitioner Family; Visit Provider Nurse Practitioner Family | DX: C83.38 Diffuse large B-cell lymphoma, lymph nodes of multiple sites (principal); R03.0 Elevated blood-pressure reading, without diagnosis of hypertension; M25.552 Pain in left hip; Z95.828 Presence of other vascular implants and grafts | CPT/HCPCS: 99214 ==

== ENCOUNTER 2025-05-11 08:56 | Outpatient (CLI) | payer MEDICARE, SELFPAY ==
--- NOTE | 2025-05-11 09:30 | MM_ITS ---
WS: [id number] DIAGNOSTIC BILATERAL DIGITAL BREAST TOMOSYNTHESIS MAMMOGRAPHY WITH CAD LEFT breast ultrasound, limited HISTORY: 2 left breast lesions seen on PET COMPARISON: PET/CT 04/16/2025, prior mammogram 04/22/2024 and 03/01/2023 TECHNIQUE: Bilateral craniocaudad, mediolateral oblique, and mediolateral views are submitted with tomosynthesis and SM. LEFT MLO spot compression. Computer aided detection utilized. Breast composition: There are scattered areas of fibroglandular density. Ill-defined soft tissue mass in the superior medial LEFT breast seen only on the lateral projections. There may be a few tiny calcifications centrally. This mass is very posterior and just superficial to the pectoralis muscle. This mass does correspond to the positive finding on PET/CT imaging. There are additional vascular and arterial calcifications in each breast. No suspicious mass in the RIGHT breast. LEFT breast ultrasound, limited. Soft tissue mass LEFT breast 11:00, 9 cm from the nipple. This mass corresponds to the finding on PET/CT imaging. There are 2 separate components with one measuring 1.8 x 0.4 x 0.4 cm. The adjacent and inseparable component 1.3 x 0.4 x 0.9 cm. Suspect these are 2 adjacent lymph nodes. The fatty hilum has been displaced. Mild increased peripheral vascularity. MM/MM diag BI tomosynthesis [id number] IMPRESSION: BI-RADS: 4 - Suspicious Finding - Biopsy Should Be Considered. FOLLOW UP: Biopsy Recommended 1. Abnormal soft tissue mass in the superior LEFT breast at 11:00, 9 cm from t he nipple. This corresponds to the PET/CT imaging that was positive from 025. This does appear to be 2 adjacent small abnormal lymph nodes. Patient desc ribes this mass as decreasing in size. 2. Ultrasound guided biopsy would be possible if clinically thought necessary.
--- NOTE | 2025-05-11 10:17 | US_ITS ---
WS: [id number] DIAGNOSTIC BILATERAL DIGITAL BREAST TOMOSYNTHESIS MAMMOGRAPHY WITH CAD LEFT breast ultrasound, limited HISTORY: 2 left breast lesions seen on PET COMPARISON: PET/CT 04/16/2025, prior mammogram 04/22/2024 and 03/01/2023 TECHNIQUE: Bilateral craniocaudad, mediolateral oblique, and mediolateral views are submitted with tomosynthesis and SM. LEFT MLO spot compression. Computer aided detection utilized. Breast composition: There are scattered areas of fibroglandular density. Ill-defined soft tissue mass in the superior medial LEFT breast seen only on the lateral projections. There may be a few tiny calcifications centrally. This mass is very posterior and just superficial to the pectoralis muscle. This mass does correspond to the positive finding on PET/CT imaging. There are additional vascular and arterial calcifications in each breast. No suspicious mass in the RIGHT breast. LEFT breast ultrasound, limited. Soft tissue mass LEFT breast 11:00, 9 cm from the nipple. This mass corresponds to the finding on PET/CT imaging. There are 2 separate components with one measuring 1.8 x 0.4 x 0.4 cm. The adjacent and inseparable component 1.3 x 0.4 x 0.9 cm. Suspect these are 2 adjacent lymph nodes. The fatty hilum has been displaced. Mild increased peripheral vascularity. US/US breast LT limited* [id number] IMPRESSION: BI-RADS: 4 - Suspicious Finding - Biopsy Should Be Considered. FOLLOW UP: Biopsy Recommended 1. Abnormal soft tissue mass in the superior LEFT breast at 11:00, 9 cm from t he nipple. This corresponds to the PET/CT imaging that was positive from 025. This does appear to be 2 adjacent small abnormal lymph nodes. Patient desc ribes this mass as decreasing in size. 2. Ultrasound guided biopsy would be possible if clinically thought necessary.
== END 2025-05-11 08:57 | disposition home or self-care (01) ==
LOC: RAD 08:59
PROVIDERS: PCP Nurse Practitioner Family; Visit Provider Nurse Practitioner Family
DX: R94.8 Abnormal results of function studies of other organs and systems (principal); R92.1 Mammographic calcification found on diagnostic imaging of breast; R92.322 Mammographic fibroglandular density, left breast; N63.22 Unspecified lump in the left breast, upper inner quadrant; R59.9 Enlarged lymph nodes, unspecified
CPT/HCPCS: 76642; 77062; G0279

== ENCOUNTER 2025-05-24 11:34 | Oncology outpatient (recurring) (ONCR) | payer MEDICARE, SELFPAY ==
[2025-05-24 12:04] LABS: Hematocrit 39.4 % (36-47); Hemoglobin 13.70 g/dL (11.27-16.99); Mean Corpuscular HGB Conc 34.8 g/dL (30-55); Mean Corpuscular Hemoglobin 31.1 pg (27-33); Mean Corpuscular Volume 89.3 fl (85-98); Nucleated Red Blood Cells % 0 %; Platelet Count 147 10^3/cmm (157-399); Red Blood Count 4.41 10^6/uL (3.85-5.65); White Blood Count 7.17 10^3/uL (3.29-11.43)
[2025-05-24 12:23] LABS: Alanine Aminotransferase 12 U/L (0-33); Albumin Level 4.6 g/dL (3.5-5.2); Alkaline Phosphatase 89 U/L (35-105); Anion Gap 14.8 (5-19); Aspartate Amino Transferase 14 U/L (0-32); Blood Urea Nitrogen 9 mg/dL (8-23); Calcium 9.9 mg/dL (8.5-10.5); Carbon Dioxide 28 mmol/L (22-29); Chloride 99 mmol/L (98-107); Globulin 2.2 g/dL (1.3-4.6); Glucose 116 mg/dL (65-115); Osmolality Calculated 288 mOsm/kg (285-295); Sodium 139 mmol/L (136-145); Total Protein 6.8 g/dL (6.6-8.7)
[2025-05-24 12:28] LABS: Potassium 2.8 mmol/L (3.5-5.1)
[2025-05-24] MEDS: sodium chlor 0.9% + KCl 40 mEq 40 MEQ/1,000 ML BAG 500 MEQ IV (13:08)
[2025-05-24 15:27] VITALS: BP 151/57; PULSE 78; RESP 18; TEMP 36.6; O2SAT 99
== END 2025-06-20 23:59 | disposition home or self-care (01) ==
PROVIDERS: Internal Medicine Medical Oncology; PCP Nurse Practitioner Family; Visit Provider Nurse Practitioner Family
DX: Z08 Encounter for follow-up examination after completed treatment for malignant neoplasm (principal); Z85.72 Personal history of non-Hodgkin lymphomas; R03.0 Elevated blood-pressure reading, without diagnosis of hypertension; E87.6 Hypokalemia; D70.1 Agranulocytosis secondary to cancer chemotherapy; T45.1X5A Adverse effect of antineoplastic and immunosuppressive drugs, initial encounter; Z79.899 Other long term (current) drug therapy; Z95.828 Presence of other vascular implants and grafts; Z92.21 Personal history of antineoplastic chemotherapy
CPT/HCPCS: 36591; 80053; 85025; 96360; 99214; J9999

== ENCOUNTER 2025-07-20 09:00 | Oncology outpatient (recurring) (ONCR) | payer MEDICARE, SELFPAY ==
--- NOTE | 2025-07-09 09:30 | PETR_ITS ---
PROCEDURE INFORMATION: Exam: PET/CT Skull Base to Mid-thigh Exam date and time: 07/09/2025 9:46 AM Age: 80 years old Clinical indication: Condition or disease; Primary cancer: Diffuse large b-cell lymphoma; Prior surgery; Surgery date: 6+ months; Surgery type: Port, hyst, gb, appy LABS AND CLINICAL REPORTS: Glucose: 80 mg/dl Treatment strategy for malignancy (PET staging): Restaging (PS) TECHNIQUE: Imaging protocol: Following at least four-hour fasting and following the injection of radiopharmaceutical, low dose CT images were obtained. Then, PET images were obtained. Attenuation corrected images were constructed using the CT scan. Fused images of PET and CT were reviewed. The standardized uptake values (SUV) reported below are maximum values within a region of interest, expressed in gm/ml. Exam includes orbital meatal line to mid-thigh. SUV normalization method: BodyWeight Radiopharmaceutical: 11.06 mCi F-18 FDG (Fluorodeoxyglucose), IV. Time of imaging post radiopharmaceutical administration: 46 minutes Injection site: left ac COMPARISON: PT PET skull to thigh SUBS [id number] 04/16/2025 9:36 AM FINDINGS: Tubes, catheters and devices: Right chest wall chemo port with tip at the cavoatrial junction. Brain: Visualized brain has normal physiologic uptake. Pharynx: No abnormal uptake. Larynx: No abnormal uptake. Lungs, pleura and trachea: New nonspecific small focus of increased FDG uptake within the medial left lower lobe, maximum SUV 3.5. This correlates to an area of mild heterogeneity and ground-glass, without a focal nodule. Heart: Normal physiologic uptake. Mediastinal space: No abnormal uptake. Liver: No abnormal uptake. Gallbladder and biliary ducts: No abnormal uptake. Status post cholecystectomy. Pancreas: No abnormal uptake. Spleen: No abnormal uptake. Adrenal glands: No abnormal uptake. Kidneys and ureters: Normal physiologic uptake. Stomach and bowel: No abnormal uptake. Vasculature: No abnormal uptake. Lymph nodes: Persistent mildly FDG avid right paratracheal and precarinal lymph nodes, maximum SUV 4.2. These lymph nodes are nonenlarged by CT size criteria, measuring up to 5 mm in short axis and are overall not significantly changed in size and appearance compared to the prior study. No FDG avid axillary, cervical or intra-abdominal lymph nodes. Skeleton: No abnormal uptake in the visualized axial and appendicular skeleton. Soft tissues: Previously noted nodular increased FDG uptake in the medial left breast has resolved, with mild residual linear fat stranding without increased FDG uptake. This is thought to have been inflammatory in etiology. No abnormal uptake in the visualized head, neck, chest, abdomen, pelvis, and extremities. METRICS: Mediastinal blood pool: Mean SUV of 2.1 Liver uptake: Mean SUV of 2.8 PET/PET skull to thigh SUBS [id number] IMPRESSION: 1. New nonspecific small focus of increased FDG uptake within the medial left lower lobe, which correlates to an area of mild heterogeneity and ground-glass, without a focal nodule. This is favored to be infectious/inflammatory, although lymphomatous involvement is not definitively excluded. Close attention on follow-up imaging is recommended. 2. Previously noted nodular FDG uptake within the medial left breast has resolved and was favored to be inflammatory. 3. Persistent mild FDG avid small mediastinal lymph nodes, which remain indeterminate and may be reactive.
== END 2025-07-21 23:59 | disposition home or self-care (01) ==
PROVIDERS: PCP Nurse Practitioner Family; Visit Provider Internal Medicine Medical Oncology
DX: Z08 Encounter for follow-up examination after completed treatment for malignant neoplasm (principal); Z85.72 Personal history of non-Hodgkin lymphomas; Z95.828 Presence of other vascular implants and grafts; R03.0 Elevated blood-pressure reading, without diagnosis of hypertension
CPT/HCPCS: 78815; 96523; 99213; 99214; A9552